=== PATIENT | female | born 1930 | race Caucasian/White ===

== ENCOUNTER 2016-11-12 08:56 | Emergency (ER) | payer MEDICARE, OTHER ==
[2016-11-12 09:13] VITALS: BP 125/69
--- OUTSIDE RECORDS SUMMARY | 2016-11-12 09:36 | XMS REPORT | Continuity of Care Document ---
:1930 Author Organization [facility] ([facility]) Address [address] [place] [address] Phone [phone] Care Team Providers Name Role Phone Mazin Sharma Primary Care Provider [phone] Source Comments This disclosure is being made pursuant to the Care Everywhere program, applicable federal and state laws, and may not contain all informaitonavailable regarding this patient.[facility] ([facility]) Active Allergies and Adverse Reactions Allergen Noted Date Severity Reactions Comments Adhesive Tape Pruritus Penicillins Urticaria (Hives) Streptomycin Dizziness Sulfadoxine Urticaria (Hives) Current Medications Prescription Sig. Disp. Refills Start Date End Date Status CALCIUM CARBONATE Take 500 mg by mouth Active (CALCIUM 500 PO) daily. citalopram 20 mg Take 20 mg by mouth Active tablet daily. ALPRAZolam 0.25 mg Take 0.25 mg by Active tablet mouth daily as needed . multivitamin with Take 1 Tab by mouth Active minerals tablet daily. acetaminophen Take 325 mg by mouth Active (TYLENOL) 325 mg every 4 hours as tablet needed. losartan 50 mg Take 1 Tab by mouth 30 Tab 11 01/17/2014 Active tablet daily. Indications: CHRONIC HEART FAILURE FAMOTIDINE 20 mg as needed . 07/18/2014 Active tablet ATROVENT HFA 17 05/30/2014 Active mcg/Actuation inhaler zoster vaccine-live inject 0.65 mL 0.65 mL 0 08/07/2014 Active (ZOSTAVAX) 19,400 subcutaneously once. unit injection Indications: PREVENTION OF HERPES ZOSTER omega-3 fatty acids Take 2 g by mouth 2 Active 1 gram capsule times daily hydroxyurea 500 mg Take 1 capsule (500 30 capsule 11 10/01/2015 Active capsule mg total) by mouth daily. warfarin 1 mg tablet Take 4 mg by mouth Active daily. metoPROLol tartrate Take 1 tablet (25 mg 60 tablet 04/08/2016 Active 25 mg tablet total) by mouth 2 times daily. amiodarone 100 mg Take 100 mg by mouth Active tablet daily. furosemide 40 mg Take 0.5 tablets (20 30 tablet 05/13/2016 Active tablet mg total) by mouth daily. spironolactone 25 mg Take 0.5 tablets 30 tablet 05/13/2016 Active tablet (12.5 mg total) by mouth daily. levothyroxine 100 Take 100 mcg by Active mcg tablet mouth every morning before breakfast. potassium chloride Take 1 tablet (20 60 tablet 06/24/2016 Active 20 mEq tablet mEq total) by mouth 2 times daily. 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 2006 without mention of cerebral infarction Primary open-angle glaucoma(365.11) 03/03/2005 Unspecified cataract 03/03/2005 Chronic airway obstruction, not elsewhere classified 03/03/2005 Anxiety state, unspecified 08/26/2002 Resolved Problems Problem Noted Date Resolved Date DIARRHEA NOS 08/26/2002 07/12/2013 Social History Tobacco Use Types Packs/Day Years Used Date Current Every Day Smoker Cigarettes 0.5 50 Smokeless Tobacco: Never Used Tobacco Cessation:Ready to Quit: No Comments: Alcohol Use Drinks/Week oz/Week Comments No Last Filed Vital Signs Vital Sign Reading Time Taken Blood Pressure 130/80 06/24/2016 12:47 PM CDT Pulse 60 06/24/2016 12:47 PM CDT Temperature 36.2 C (97.2 F) 03/18/2016 9:36 AM CDT Respiratory Rate 20 01/31/2016 9:08 AM CDT Height 1.575 m (5' 2.01") 06/24/2016 12:47 PM CDT Weight 47.537 kg (104 lb 12.8 oz) 06/24/2016 12:47 PM CDT Body Mass Index 19.16 06/24/2016 12:47 PM CDT Oxygen Saturation 94% 04/02/2016 3:55 PM CDT Plan of Care Date Type Specialty Providers Description 12/23/2016 Appointment Heart and Vascular Jet Guillen Subj: Ama Merritt MD Scheduled [address] [place] [address] [phone] (Fax) 04/30/2017 Appointment Heart and Vascular Fredy Thompson MD Chief Comp: Patient [address] [place] [address] Visit [phone] (Fax) Health Maintenance Due Date Last Done Comments Hepatitis B Vaccine (1 of 3 - Primary 1930 Series) Tdap Vaccine 1942 Td Vaccine 1949 Colonoscopy 05/11/1981 Zoster Vaccine 1991 Osteoporosis Screening (DXA Bone 1996 Density) Pneumococcal Vaccine (1 of 2 - PCV13) 1996 Influenza Vaccine: Seasonal (#1) 04/07/2016 05/30/2014 (Previously completed) Lipid Disorder Screening 07/24/2020 07/24/2015, 09/20/2012 Results from Last 3 Months Not on file
--- NOTE | 2016-11-12 09:43 | ERNOTE ---
Integumentary HPI - Narrative Date of Service: 11/12/16 - General Presenting Symptoms: rash Time Seen by Provider: 11/12/16 09:21 Source: patient - Immun/Allergies/Home Medications Immunizations: IMMUNIZATION HX Immunizations Up to Date Yes History of Influenza Vaccine Yes Hx Pneumococcal Vaccination Yes Allergies/Adverse Reactions: Allergies Allergy/AdvReac Type Severity Reaction Status Date / Time Penicillins Allergy Unknown Verified 11/12/16 09:14 Sulfa (Sulfonamide Allergy Unknown Verified 11/12/16 09:14 Antibiotics) [Sulfa(Sulfonamide Antibiotics)] adhesive Allergy Verified 11/12/16 09:14 streptomycin Allergy Verified 11/12/16 09:14 Home Medications: HOME MEDICATIONS Budesonide [Pulmicort Respules] 0.5 mg IH BIDRT #0 vial.neb 07/10/12 [Last Taken Unknown] Citalopram Hydrobromide [Celexa] 20 mg PO DAILY #0 tablet 07/10/12 [Last Taken Unknown] Hydroxyurea [Hydrea] 500 mg PO DAILY #0 capsule 07/10/12 [Last Taken Unknown] Ipratropium [place] [Atrovent] 0.5 mg IH BIDRT PRN #0 vial.neb 07/10/12 [Last Taken Unknown] Levalbuterol HCl [Xopenex] 1.25 mg IH Q6H PRN #0 ampul 07/10/12 [Last Taken Unknown] Amiodarone HCl [Cordarone] 100 mg PO DAILY 06/18/14 [Last Taken Unknown] LORazepam [Ativan] 0.5 mg PO TID PRN #30 tab 06/18/14 [Last Taken Unknown] Losartan Potassium [Cozaar] 50 mg PO DAILY 06/18/14 [Last Taken Unknown] Meclizine HCl [Antivert] 25 mg PO QID PRN #40 tab 06/18/14 [Last Taken Unknown] Levothyroxine Sodium [Synthroid] 150 mcg PO DAILY@0700 02/21/15 [Last Taken Unknown] Warfarin Sodium [Coumadin] 4 mg PO DAILY 02/21/15 [Last Taken Unknown] Doxycycline Monohydrate [Monodox] 100 mg PO BID 11/12/16 [Last Taken Unknown] Famotidine [Pepcid] 20 mg PO BID #10 tab 11/12/16 [Last Taken Unknown] Furosemide [Lasix] 60 mg PO DAILY 11/12/16 [Last Taken Unknown] Prednisone [Deltasone] 20 mg PO BID #10 tablet 11/12/16 [Last Taken Unknown] - History of Present Illness Narrative: Impression presents with a rash on her back on her blood tox in the back of both eyes that started over the past 24 hours. Describes the rash as being itchy in nature. Patient is unclear as to the cause she thinks it could be attributed to several things one could be the doxycycline that she was just started on an second could possibly be [place] home has been doing her laundry with a detergent that she is unfamiliar with. Location: Reports: torso Quality: Reports: itching Severity: moderate Exposure: Reports: soaps/detergent, other - or possibly Doxycycline Associated Symptoms: Reports: hives Prior Treatment: Reports: treated by physician, currently on antibiotics Review of Systems - Review of Systems Constitutional: Present: See HPI EYE: Present: no symptoms reported ENT: Present: no symptoms reported Respiratory: Present: no symptoms reported Cardiology: Present: no symptoms reported Gastrointestinal/Abdominal: Present: no symptoms reported Genitourinary: Present: no symptoms reported Musculoskeletal: Present: no symptoms reported Skin: Present: rash Neurological: Present: no symptoms reported Endocrine: Present: no symptoms reported Hematologic/Lymphatic: Present: no symptoms reported Psych: Present: no symptoms reported - Patient's Past Medical History Patient History - Cardiac/Respiratory: CHF, COPD, Hypertension, Hyperlipidemia Patient History - Surgical Procedures: Pacemaker - Social History Living Situations: home Smoking Status: Current every day smoker Alcohol Use: none Drug Use: none - Immunizations Immunizations Up to Date: Yes Hx Pneumococcal Vaccination: Yes History of Influenza Vaccine: Yes Physical Exam - Physical Exam General Appearance: Present: wd/wn, alert, mild distress Eye Exam: Normal inspection: bilateral, PERRL: bilateral Ears, Nose, Throat: Present: normal ENT inspection, H, normal pharynx Neck: Present: normal inspection, nontender Respiratory: Present: no respiratory distress, normal breath sounds, no accessory muscle use, chest nontender, lungs clear Cardiovascular/Chest: Present: regular rate, rhythm, no murmur, normal peripheral pulses Gastrointestinal/Abdominal: Present: normal bowel sounds, nontender, nondistended, soft, no organomegaly Rectal Exam: Present: deferred Back Exam: Present: normal inspection, normal range of motion Extremity Exam: Present: normal inspection, non-tender, no edema, normal range of motion Neurological Exam: Present: alert, oriented, normal mood/affect Skin Exam: Present: warm/dry, other - hives across the back, buttocks and the back of her legs Lymphatic Exam: Present: no adenopathy ED Progress - Vital Signs Patient's Vital Signs:: I have reviewed the patient's vital signs. Vital Signs: Vital Signs 11/12/16 09:09 Temperature 36.4 C L Pulse Rate 75 Respiratory 12 Rate Blood Pressure 125/69 O2 Sat by Pulse 96 Oximetry - Progress/Reassessment Chief Complaint: Rash - Transfer of Care Expected Disposition: Discharge Plan - Plan Plan: While the rash could possibly be from the doxycycline and the fact that it is positioned in a place where she would sit down and perhaps have some degree of body moisture in the form of sweat could be lesion chemicals off the closed with the unknown laundry detergent. Patient will be discharged from [place] home shortly and will be going almost going home straight doing her own laundry she's even going to start doing her own laundry now so we're going to put her on 5 day course of oral steroids and Pepcid as well as Atarax to help with the itching. The patient is being treated for sinus infection, however we are still going to have her hold the direct doxycycline for now. She can wash all of her clothes in her familiar laundry detergent and then restart of the doxycycline at that point and see if the rash reconstitutes itself. We'll keep her family physician apprised of the course of events of the above-mentioned plan that we just talked about. Departure Clinical Impression: Urticaria - Departure Disposition: Home self-care Condition: Good Instructions: Hives, [id number] Referrals: Mazin Sharma MD [Primary Care Provider] -
== END 2016-11-12 09:47 | disposition home or self-care (01) ==
LOC: ER 08:56
DX: L50.9 Urticaria, unspecified (principal); F17.210 Nicotine dependence, cigarettes, uncomplicated; Z95.0 Presence of cardiac pacemaker; I50.9 Heart failure, unspecified; J44.9 Chronic obstructive pulmonary disease, unspecified

== ENCOUNTER 2017-01-02 13:38 | Emergency (ER) | payer MEDICARE, OTHER ==
--- OUTSIDE RECORDS SUMMARY | 2017-01-02 14:55 | XMS REPORT | Continuity of Care Document ---
:1930 Author Organization [facility] ([facility]) Address [address] [place] [address] Phone [phone] Care Team Providers Name Role Phone Mazin Sharma Primary Care Provider [phone] Source Comments This disclosure is being made pursuant to the Care Everywhere program, applicable federal and state laws, and may not contain all informaitonavailable regarding this patient.[facility] ([facility]) Active Allergies and Adverse Reactions Allergen Noted Date Severity Reactions Comments Adhesive Tape Pruritus Doxycycline 11/24/2016 Urticaria (Hives) Penicillins Urticaria (Hives) Streptomycin Dizziness Sulfadoxine Urticaria (Hives) Current Medications Prescription Sig. Disp. Refills Start End Date Status Date CALCIUM CARBONATE Take 500 mg by Active (CALCIUM 500 PO) mouth daily. multivitamin with Take 1 Tab by Active minerals tablet mouth daily. acetaminophen Take 325 mg by Active (TYLENOL) 325 mg mouth every 4 tablet hours as needed. losartan 50 mg Take 1 Tab by 30 Tab 11 Active tablet mouth daily. 4 Indications: CHRONIC HEART FAILURE FAMOTIDINE 20 mg as needed . Active tablet 4 ATROVENT HFA 17 Active mcg/Actuation 4 inhaler zoster inject 0.65 mL 0.65 mL 0 Active vaccine-live subcutaneously 4 (ZOSTAVAX) 19,400 once. Indications: unit injection PREVENTION OF HERPES ZOSTER omega-3 fatty Take 2 g by mouth Active acids 1 gram 2 times daily capsule warfarin 1 mg Take 4 mg by mouth Active tablet daily. metoPROLol Take 1 tablet (25 60 tablet 11 Active tartrate 25 mg mg total) by mouth 6 tablet 2 times daily. amiodarone 100 mg Take 100 mg by Active tablet mouth daily. potassium chloride Take 1 tablet (20 60 tablet 11 Active 20 mEq tablet mEq total) by 6 mouth 2 times daily. hydroxyurea 500 mg Take 1 capsule 30 capsule 11 Active capsule (500 mg total) by 7 mouth daily. furosemide PO Take 60 mg by Active mouth. Takes one 40 mg and 20 mg in the AM. levothyroxine 150 Take 150 mcg by Active mcg tablet mouth every morning before breakfast. spironolactone 25 Take 25 mg by Active mg tablet mouth daily. ALPRAZolam 0.25 mg Take 1 tablet 30 tablet 0 Active tablet (0.25 mg total) by 7 mouth 2 times daily as needed for Anxiety. citalopram 20 mg Take 2 tablets (40 60 tablet 1 Active tablet mg total) by mouth 7 daily. furosemide 80 mg Take 1 tablet (80 30 tablet 11 Active tablet mg total) by mouth 7 every morning. citalopram 20 mg Take 20 mg by 12/24/19 Discontinued tablet mouth daily. 17 ALPRAZolam 0.25 mg Take 0.25 mg by 12/24/19 Discontinued tablet mouth 3 times 17 daily as needed. furosemide 40 mg Take 0.5 tablets 30 tablet 12/24/19 Discontinued tablet (20 mg total) by 6 17 mouth daily. spironolactone 25 Take 0.5 tablets 30 tablet 11 12/24/19 Discontinued mg tablet (12.5 mg total) by 6 17 mouth daily. levothyroxine 100 Take 100 mcg by 12/24/19 Discontinued mcg tablet mouth every 17 morning before breakfast. furosemide 20 mg Take 20 mg by 12/24/19 Discontinued tablet mouth daily. 60 mg 17 in the AM and additional 20 mg in the afternoon. Active Problems Problem Noted Date Femoral bruit 11/12/2015 Biventricular cardiac pacemaker in situ - [employer] 07/14/2014 Paroxysmal atrial fibrillation 07/12/2013 Essential thrombocythemia [...] Date Resolved Date DIARRHEA NOS 08/26/2002 07/12/2013 Most Recent Encounters Date Type Specialty Providers Description 12/23/2016 Office Visit [facility] - Default, Other Dx: Paroxysmal Specialty Billg - Defo atrial fibrillation (Primary Dx) 12/23/2016 Office Visit Heart and Vascular Mindy, Dx: Paroxysmal Jet Merritt MD atrial fibrillation (Primary Dx) 11/24/2016 Hospital Encounter Hematology and Durga Hector Dx: ET ( essential Oncology MD Justin thrombocythemia) (Primary Dx) Social History Tobacco Use Types Packs/Day Years Used Date Current Every Day Smoker Cigarettes 0.5 50 Smokeless Tobacco: Never Used Tobacco Cessation:Ready to Quit: No Comments: Alcohol Use Drinks/Week oz/Week Comments No Last Filed Vital Signs Vital Sign Reading Time Taken Blood Pressure 128/75 12/23/2016 10:08 AM CDT Pulse 74 11/24/2016 1:00 PM CDT Temperature 36.8 C (98.2 F) 11/24/2016 1:00 PM CDT Respiratory Rate 20 01/31/2016 9:08 AM CDT Height 1.575 m (5' 2") 12/23/2016 10:08 AM CDT Weight 47.356 kg (104 lb 6.4 oz) 12/23/2016 10:08 AM CDT Body Mass Index 19.09 12/23/2016 10:08 AM CDT Oxygen Saturation 95% 12/23/2016 10:08 AM CDT Plan of Care Date Type Specialty Providers Description 01/20/2017 Appointment Heart and Vascular Jet Guillen Subj: Ama Merritt MD Scheduled [address] [place] [address] [phone] (Fax) 04/30/2017 Appointment Heart and Vascular Fredy Thompson MD Chief Comp: Patient [address] [place] [address] Visit [phone] (Fax) Health Maintenance Due Date Last Done Comments Hepatitis B Vaccine (1 of 3 - Primary 1930 Series) Tdap Vaccine 1942 Td Vaccine 1949 Colonoscopy 05/11/1981 Zoster Vaccine 1991 Osteoporosis Screening (DXA Bone 1996 Density) Pneumococcal Vaccine (1 of 2 - PCV13) 1996 Influenza Vaccine: Seasonal (Season 04/07/2017 05/30/2014 (Previously Ended) completed) Lipid Disorder Screening 07/24/2020 07/24/2015, 09/20/2012 Results from Last 3 Months [facility] BASIC METABOLIC PANEL (W/ CALCIUM TOTAL) (12/23/2016 9:30 AM) Component Value Range [facility] Sodium 140 137-145 mmol/L [facility] Potassium 4.3 3.4-5.1 mmol/L [facility] Chloride 100 98-107 mmol/L [facility] CO2 30 20-30 mmol/L [facility] Glucose 102 60-110 mg/dL [facility] BUN 13 7-17 mg/dL [facility] Creatinine 1.07 0.70-1.25 mg/dL [facility] Calcium 8.7 8.4-10.5 mg/dL [facility] Calculated GFR 49(L) >60 mL/min/1.73 m2 Specimen Blood
--- NOTE | 2017-01-02 15:05 | ERNOTE ---
Lower Extremity HPI - Narrative Date of Service: 01/02/17 - General Lower Extremities Pain: hip: bilateral, other: bilateral - lower back Time Seen by Provider: 01/02/17 14:42 Source: patient Exam Limitations: no limitations - Immun/Allergies/Home Medications Immunizations: IMMUNIZATION HX Immunizations Up to Date Yes History of Influenza Vaccine Yes Hx Pneumococcal Vaccination Yes Allergies/Adverse Reactions: Allergies Allergy/AdvReac Type Severity Reaction Status Date / Time Penicillins Allergy Unknown Verified 01/02/17 15:02 Sulfa (Sulfonamide Allergy Unknown Verified 01/02/17 15:02 Antibiotics) [Sulfa(Sulfonamide Antibiotics)] adhesive Allergy Verified 01/02/17 15:02 streptomycin Allergy Verified 01/02/17 15:02 Home Medications: HOME MEDICATIONS Budesonide [Pulmicort Respules] 0.5 mg IH BIDRT #0 vial.neb 07/10/12 [Last Taken Unknown] Hydroxyurea [Hydrea] 500 mg PO DAILY #0 capsule 07/10/12 [Last Taken Unknown] Ipratropium [place] [Atrovent] 0.5 mg IH BIDRT PRN #0 vial.neb 07/10/12 [Last Taken Unknown] Levalbuterol HCl [Xopenex] 1.25 mg IH Q6H PRN #0 ampul 07/10/12 [Last Taken Unknown] Amiodarone HCl [Cordarone] 100 mg PO DAILY 06/18/14 [Last Taken Unknown] Losartan Potassium [Cozaar] 50 mg PO DAILY 06/18/14 [Last Taken Unknown] Levothyroxine Sodium [Synthroid] 150 mcg PO DAILY@0700 02/21/15 [Last Taken Unknown] Warfarin Sodium [Coumadin] 4 mg PO DAILY 02/21/15 [Last Taken Unknown] Famotidine [Pepcid] 20 mg PO BID #10 tab 11/12/16 [Last Taken Unknown] Furosemide [Lasix] 80 mg PO DAILY 11/12/16 [Last Taken Unknown] ALPRAZolam [Xanax] 0.25 mg PO TID PRN 01/02/17 [Last Taken Unknown] Acetaminophen [Tylenol] 325 mg PO Q4H PRN 01/02/17 [Last Taken Unknown] Calcium Carbonate [Calcium] 500 mg PO DAILY 01/02/17 [Last Taken Unknown] Cephalexin Monohydrate [Keflex] 500 mg PO QID #40 cap 01/02/17 [Last Taken Unknown] Citalopram Hydrobromide [Celexa] 20 mg PO BID 01/02/17 [Last Taken Unknown] Lidocaine [Lidoderm 5%] 1 patch TP DAILY PRN #30 patch 01/02/17 [Last Taken Unknown] Metoprolol Succinate 25 mg PO BID 01/02/17 [Last Taken Unknown] Multivitamin [Multivitamins] 1 each PO DAILY 01/02/17 [Last Taken Unknown] [place]-3/Dha/Epa/Fish Oil [[place] 3 500 Softgel] 1 each PO DAILY 01/02/17 [Last Taken Unknown] Potassium Chloride [Klor-Con] 20 meq PO BID 01/02/17 [Last Taken Unknown] Spironolactone [Aldactone] 25 mg PO DAILY 01/02/17 [Last Taken Unknown] - History of Present Illness Narrative: Pt. comes in with c/o low back pain that radiates to B hips after two falls since last night. Pt. states that she has fallen in the middle of the night and has not been using her walker or cane like she should and states that she is off balance, hurrying to the bathroom, and falls onto her buttocks. Pt. denies hitting her head, NVD, vision changes, weakness, or numbness and tingling. Pt. states that movement and ambulation exacerbates the pain and nothing alleviates the pain. Review of Systems - Review of Systems Constitutional: Present: no symptoms reported. Absent: recent illness, fever, chills, weakness, fatigue, malaise EYE: Present: no symptoms reported ENT: Present: no symptoms reported Respiratory: Present: no symptoms reported. Absent: shortness of breath, cough , wheezing Cardiology: Present: no symptoms reported. Absent: chest pain, palpitations, edema Gastrointestinal/Abdominal: Present: no symptoms reported. Absent: nausea, vomiting, diarrhea Genitourinary: Present: no symptoms reported Musculoskeletal: Present: back pain - Low, muscle pain - B hip Skin: Present: no symptoms reported Neurological: Present: no symptoms reported. Absent: headache, dizziness/light- headedness, numbness, tingling All Other Systems: All systems neg except as marked - Patient's Past Medical History Patient History - Cardiac/Respiratory: CHF, COPD, Hypertension, Hyperlipidemia Patient History - Surgical Procedures: Pacemaker LMP (females 10-50): Menopausal - Social History Living Situations: home Smoking Status: Current every day smoker Alcohol Use: none Drug Use: none - Immunizations Immunizations Up to Date: Yes Hx Pneumococcal Vaccination: Yes History of Influenza Vaccine: Yes Physical Exam - Physical Exam General Appearance: Present: wd/wn, alert, no apparent distress Eye Exam: Normal inspection: bilateral, PERRL: bilateral, EOMI: bilateral Ears, Nose, Throat: Present: normal ENT inspection, normal pharynx Neck: Present: normal inspection, nontender. Absent: lymphadenopathy (R), lymphadenopathy (L) Respiratory: Present: no respiratory distress, normal breath sounds, no accessory muscle use, chest nontender, lungs clear Cardiovascular/Chest: Present: regular rate, rhythm, no murmur, normal peripheral pulses Gastrointestinal/Abdominal: Present: normal bowel sounds, nontender, nondistended, soft, no organomegaly Back Exam: Present: vertebral tenderness - L3-S1, decreased range of motion - flxion, extension, and rotation Extremity Exam: Present: normal inspection, non-tender, normal range of motion, no edema Neurological Exam: Present: alert, oriented, normal mood/affect, no motor/ sensory deficits Skin Exam: Present: normal color, warm/dry. Absent: pallor, skin rash ED Progress - Date and Time Seen: Date and Time: 01/02/17 16:06 Pt. refused IVF. Will treat will abx for UTI have pt. push oral fluids, and follow up with primary provider on Thursday. - Vital Signs Patient's Vital Signs:: I have reviewed the patient's vital signs. Vital Signs: Vital Signs 01/02/17 14:08 Temperature 37.0 C Pulse Rate 84 Respiratory 18 Rate Blood Pressure 98/53 O2 Sat by Pulse 94 Oximetry - X-Ray X-Ray #1 X-Ray: lumbosacral Interpretation: Interp. by me X-ray Comments: L1 compression fracture without retropulsion. L2-S1 degenerative changes - Progress/Reassessment Chief Complaint: Hip Pain/Injury Progress:: Unchanged Departure Clinical Impression: Compression fracture UTI (urinary tract infection) Qualifiers: Urinary tract infection type: acute cystitis Hematuria presence: without hematuria Qualified Code(s): N30.00 - Acute cystitis without hematuria - Departure Disposition: Home self-care Condition: Good Instructions: Spinal Compression Fracture, Urinary Tract Infection, Adult, Easy -to-Read Additional Instructions: Please follow up with Dr Sharma on Thursday Referrals: Mazin Sharma MD [Primary Care Provider] - Prescriptions: Cephalexin Monohydrate [Keflex] 500 mg PO QID #40 cap Lidocaine [Lidoderm 5%] 1 patch TP DAILY PRN #30 patch PRN Reason: Pain
[2017-01-02 15:24] LABS: Hematocrit 40.4 % (37.0-47.0); Hemoglobin 13.3 gm/dL (12.5-16.0); Mean Cell Volume 108.6 fl (78-100); Mean Corpuscular Hemoglobin 35.8 pg (27-31); Mean Corpuscular Hgb Conc 32.9 g/dl (32-36); Neutrophil # 9.1 K/mm3 (1.3-6.0); Neutrophil % 82.2 % (42-75.0); Platelet Count 392 K/mm3 (150-450); Red Blood Count 3.72 M/mm3 (4.2-5.4); Red Cell Distribution Width 15.9 % (11.5-14.0); White Blood Count 11.1 K/mm3 (4.0-10.5)
[2017-01-02 15:29] VITALS: BP 111/68
[2017-01-02 15:31] LABS: Urine Appearance Clear; Urine Bilirubin Negative (NEGATIVE); Urine Blood Negative /ul (NEGATIVE); Urine Color Yellow; Urine Ketone Negative (NEGATIVE); Urine Nitrite Negative (NEGATIVE); Urine Protein Negative (NEGATIVE); Urine Urobilinogen Normal (NORMAL); Urine pH 5.5 pH (5.0-7.0)
[2017-01-02 15:37] LABS: Albumin * 3.7 gm/dl (3.4-5.0); Anion Gap 12.6 mmol/L (6.8-13.8); BUN/Creatinine Ratio 14.9 (9.0-21.6); Ca. Corrected For Albumin 8.4 mg/dL (8.4-10.2); Calcium * 8.5 mg/dL (7.9-10.9); Carbon Dioxide 28.4 mmol/L (24-32.6); Total Protein 7.3 gm/dL (6.2-8.2)
[2017-01-02] MEDS ORDERED: POTASSIUM CHLORIDE 20 MEQ TABLET.SA ONE (15:52)
[2017-01-02 16:15] LABS: Prothrombin Time (Patient) 66.6 Seconds (9.4-11.4)
[2017-01-02 16:18] LABS: INR 6.4 INR (0.90-1.10)
[2017-01-02] MEDS ORDERED: PHYTONADIONE (VIT K1) 5 MG TABLET ONE (16:41)
[2017-01-02] MEDS: POTASSIUM CHLORIDE 20 MEQ TABLET.SA PO ONE (16:52)
[2017-01-02] MEDS: PHYTONADIONE (VIT K1) 5 MG TABLET PO ONE (16:52)
== END 2017-01-02 16:56 | disposition home or self-care (01) ==
LOC: ER 13:38
DX: N30.00 Acute cystitis without hematuria (principal); S32.018A Other fracture of first lumbar vertebra, initial encounter for closed fracture; W19.XXXA Unspecified fall, initial encounter; F17.200 Nicotine dependence, unspecified, uncomplicated; Z95.0 Presence of cardiac pacemaker

== ENCOUNTER 2017-01-07 07:07 | Emergency (ER) | payer MEDICARE, OTHER ==
[2017-01-07 07:20] VITALS: BP 169/80
--- NOTE | 2017-01-07 07:42 | ERNOTE ---
<Jan Devries - Last Filed: 01/07/17 07:53> Abdominal HPI - General Chief Complaint: Constipation Time Seen by Provider: 01/07/17 07:29 Source: patient Exam Limitations: no limitations - Immun/Allergies/Home Medications Immunizatons: IMMUNIZATION HX Immunizations Up to Date Yes History of Influenza Vaccine Yes Hx Pneumococcal Vaccination Yes Allergies/Adverse Reactions: Allergies Penicillins Allergy (Unknown, Verified 01/07/17 07:24) Sulfa (Sulfonamide Antibiotics) [Sulfa(Sulfonamide Antibiotics)] Allergy ( Unknown, Verified 01/07/17 07:24) adhesive Allergy (Verified 01/07/17 07:24) streptomycin Allergy (Verified 01/07/17 07:24) Home Medications: HOME MEDICATIONS Budesonide [Pulmicort Respules] 0.5 mg IH BIDRT #0 vial.neb 07/10/12 [Last Taken Unknown] Hydroxyurea [Hydrea] 500 mg PO DAILY #0 capsule 07/10/12 [Last Taken Unknown] Ipratropium [place] [Atrovent] 0.5 mg IH BIDRT PRN #0 vial.neb 07/10/12 [Last Taken Unknown] Levalbuterol HCl [Xopenex] 1.25 mg IH Q6H PRN #0 ampul 07/10/12 [Last Taken Unknown] Amiodarone HCl [Cordarone] 100 mg PO DAILY 06/18/14 [Last Taken Unknown] Losartan Potassium [Cozaar] 50 mg PO DAILY 06/18/14 [Last Taken Unknown] Levothyroxine Sodium [Synthroid] 150 mcg PO DAILY@0700 02/21/15 [Last Taken Unknown] Famotidine [Pepcid] 20 mg PO BID #10 tab 11/12/16 [Last Taken Unknown] Furosemide [Lasix] 80 mg PO DAILY 11/12/16 [Last Taken Unknown] ALPRAZolam [Xanax] 0.25 mg PO TID PRN 01/02/17 [Last Taken Unknown] Acetaminophen [Tylenol] 325 mg PO Q4H PRN 01/02/17 [Last Taken Unknown] Calcium Carbonate [Calcium] 500 mg PO DAILY 01/02/17 [Last Taken Unknown] Cephalexin Monohydrate [Keflex] 500 mg PO QID #40 cap 01/02/17 [Last Taken Unknown] Citalopram Hydrobromide [Celexa] 20 mg PO BID 01/02/17 [Last Taken Unknown] Lidocaine [Lidoderm 5%] 1 patch TP DAILY PRN #30 patch 01/02/17 [Last Taken Unknown] Metoprolol Succinate 25 mg PO BID 01/02/17 [Last Taken Unknown] Multivitamin [Multivitamins] 1 each PO DAILY 01/02/17 [Last Taken Unknown] [place]-3/Dha/Epa/Fish Oil [[place] 3 500 Softgel] 1 each PO DAILY 01/02/17 [Last Taken Unknown] Potassium Chloride [Klor-Con] 20 meq PO BID 01/02/17 [Last Taken Unknown] Spironolactone [Aldactone] 25 mg PO DAILY 01/02/17 [Last Taken Unknown] - History of Present Illness Narrative: Pt having diffuse abdominal pain for a few days and has not had a normal BM for one week Timing: getting worse Quality: moderate Prior Treatment: Present: recently seen - for UTI and compression fracture Review of Systems - Review of Systems Constitutional: Present: recent illness. Absent: fever EYE: Present: no symptoms reported ENT: Present: no symptoms reported Gastrointestinal/Abdominal: Present: See HPI, nausea Genitourinary: Present: frequency Musculoskeletal: Present: back pain Skin: Present: no symptoms reported Hematologic/Lymphatic: Present: easy bruising - Patient's Past Medical History Patient History - Medical: No pertinent hx Patient History - Cardiac/Respiratory: CHF, COPD, Hypertension, Hyperlipidemia Patient History - Cancer: No Hx of Cancer Patient History - Surgical Procedures: Hysterectomy, Pacemaker Patient History - Other: None LMP (females 10-50): Menopausal - Social History Living Situations: alone Abuse History: No History of abuse Psych History: No pertinent hx Smoking Status: Current every day smoker Have you smoked in the past 12 months: Yes Alcohol Use: none Drug Use: none - Immunizations Immunizations Up to Date: Yes Hx Pneumococcal Vaccination: Yes History of Influenza Vaccine: Yes Physical Exam - Physical Exam General Appearance: Present: wd/wn, no apparent distress Neck: Present: normal inspection, nontender Respiratory: Present: no respiratory distress, normal breath sounds, lungs clear Cardiovascular/Chest: Present: regular rate, rhythm, no murmur, normal peripheral pulses Gastrointestinal/Abdominal: Present: normal bowel sounds, soft, tenderness - bilateral upper quads Back Exam: Present: decreased range of motion - increased kyphosis Extremity Exam: Present: normal inspection, normal range of motion, no edema Neurological Exam: Present: alert, oriented, normal mood/affect Skin Exam: Present: normal color, warm/dry ED Progress - Vital Signs Vital Signs: Vital Signs 01/07/17 07:14 Temperature 36.7 C Pulse Rate 75 Respiratory 16 Rate Blood Pressure 169/80 O2 Sat by Pulse 97 Oximetry - Progress/Reassessment Chief Complaint: Constipation - Transfer of Care Physician Sign Out: Jan Devries Receiving Physician: Lexus Mckeon Pending Results: X-ray results Expected Disposition: Discharge Departure - Departure Clinical Impression: Constipation Qualifiers: Constipation type: slow transit constipation Qualified Code(s): K59.01 - Slow transit constipation Disposition: Home self-care Condition: Good Instructions: Constipation, Adult, [id number] Additional Instructions: take over the counter tylenol (325mg) two tablets every 4-6 hours as needed for pain, take miralax on a daily basis and try senokot and/or prunes to get going now Referrals: Mazin Sharma MD [Primary Care Provider] - <Lexus Mckeon - Last Filed: 01/07/17 08:34> Abdominal HPI - Immun/Allergies/Home Medications Immunizatons: IMMUNIZATION HX Immunizations Up to Date Yes History of Influenza Vaccine Yes Hx Pneumococcal Vaccination Yes ED Progress - Results and Orders Patient's Lab Results:: I have reviewed the patient's lab results. - Vital Signs Patient's Vital Signs:: I have reviewed the patient's vital signs. Vital Signs: Vital Signs 01/07/17 07:14 Temperature 36.7 C Pulse Rate 75 Respiratory 16 Rate Blood Pressure 169/80 O2 Sat by Pulse 97 Oximetry - X-Ray X-Ray #1 X-Ray: abdomen - no acute findgins, fair amount of stool Interpretation: Interp. by me - Progress/Reassessment Progress Note-Subjective: 01/07/17 08:32 discussed results with patient and family and plan to treat constipation abdomen soft, minimally tender in upper abdomen
[2017-01-07 07:49] LABS: Hematocrit 41.1 % (37.0-47.0); Hemoglobin 13.8 gm/dL (12.5-16.0); Mean Cell Volume 107.6 fl (78-100); Mean Corpuscular Hemoglobin 36.1 pg (27-31); Mean Corpuscular Hgb Conc 33.6 g/dl (32-36); Mean Platelet Volume 9.9 fl (6.0-9.5); Neutrophil # 7.9 K/mm3 (1.3-6.0); Neutrophil % 80.8 % (42-75.0); Platelet Count 389 K/mm3 (150-450); Red Blood Count 3.82 M/mm3 (4.2-5.4); Red Cell Distribution Width 15.8 % (11.5-14.0); White Blood Count 9.8 K/mm3 (4.0-10.5)
--- OUTSIDE RECORDS SUMMARY | 2017-01-07 08:01 | XMS REPORT | Continuity of Care Document ---
:1930 Author Organization [facility] ([facility]) Address [address] [place] [address] Phone [phone] Care Team Providers Name Role Phone Mazin Sharma Primary Care Provider [phone] Source Comments This disclosure is being made pursuant to the Care Everywhere program, applicable federal and state laws, and may not contain all informaitonavailable regarding this patient.[facility] ([facility]) Active Allergies and Adverse Reactions Allergen Noted [...] 11/12/2015 Biventricular cardiac pacemaker in situ - [employer] 07/14/2014 Paroxysmal atrial fibrillation 07/12/2013 Essential thrombocythemia [...] Type Specialty Providers Description 12/23/2016 Office Visit [place] - Default, Other Dx: Paroxysmal Specialty Billg [...] Ama Merritt MD Scheduled [address] [place] [address] [phone] (Fax) 04/30/2017 Appointment Heart and Vascular Fredy Thompson MD Chief Comp: Patient [address] [place] [address] Visit [phone] (Fax) Health Maintenance Due Date Last Done Comments Hepatitis B Vaccine (1 of 3 - Primary 1930 Series) Tdap Vaccine 1942 Td Vaccine 1949 Colonoscopy 05/11/1981 Zoster Vaccine 1991 Osteoporosis Screening (DXA Bone 1996 Density) Pneumococcal Vaccine (1 of 2 - PCV13) 1996 Influenza Vaccine: Seasonal (Season 04/07/2017 05/30/2014 (Previously Ended) completed) Lipid Disorder Screening 07/24/2020 07/24/2015, 09/20/2012 Results from Last 3 Months [facility] BASIC METABOLIC PANEL (W/ CALCIUM TOTAL) (12/23/2016 [...]
[2017-01-07 08:09] LABS: Urine Bilirubin Negative (NEGATIVE); Urine Blood Negative /ul (NEGATIVE); Urine Ketone Negative (NEGATIVE); Urine Nitrite Negative (NEGATIVE); Urine Protein Negative (NEGATIVE); Urine Specific Gravity 1.015 SP.GR. (1.005-1.010); Urine pH 6.5 pH (5.0-7.0)
[2017-01-07 08:14] LABS: Urine Appearance Clear; Urine Bacteria None Seen; Urine Color Yellow; Urine RBC TRACE /hpf (0-5); Urine WBC TRACE /hpf (0-5)
[2017-01-07] MEDS ORDERED: ACETAMINOPHEN 325 MG TABLET PO ONE (08:28)
[2017-01-07] MEDS ORDERED: ACETAMINOPHEN 325 MG TABLET ONE (08:29)
[2017-01-07 08:45] LABS: Albumin * 4.1 gm/dl (3.4-5.0); BUN/Creatinine Ratio 13.5 (9.0-21.6); Bilirubin, Total 1.6 mg/dL (0.0-1.1); Ca. Corrected For Albumin 8.6 mg/dL (8.4-10.2); Carbon Dioxide 26.8 mmol/L (24-32.6); Potassium 3.8 mmol/L (3.4-4.6); Total Protein 7.2 gm/dL (6.2-8.2)
== END 2017-01-07 08:35 | disposition home or self-care (01) ==
LOC: ER 07:07
DX: K59.01 Slow transit constipation (principal); Z72.0 Tobacco use; I50.9 Heart failure, unspecified; J44.9 Chronic obstructive pulmonary disease, unspecified; I10 Essential (primary) hypertension; E78.5 Hyperlipidemia, unspecified

== ENCOUNTER 2017-01-08 04:04 | Emergency (ER) | payer MEDICARE, OTHER ==
--- NOTE | 2017-01-08 04:23 | ERNOTE ---
Abdominal HPI - General Chief Complaint: Constipation Time Seen by Provider: 01/08/17 04:08 Source: patient - Immun/Allergies/Home Medications Immunizatons: IMMUNIZATION HX Immunizations Up to Date Yes History of Influenza Vaccine Yes Hx Pneumococcal Vaccination Yes Allergies/Adverse Reactions: Allergies Penicillins Allergy (Unknown, Verified 01/08/17 04:11) Sulfa (Sulfonamide Antibiotics) [Sulfa(Sulfonamide Antibiotics)] Allergy ( Unknown, Verified 01/08/17 04:11) adhesive Allergy (Verified 01/08/17 04:11) streptomycin Allergy (Verified 01/08/17 04:11) Home Medications: HOME MEDICATIONS Hydroxyurea [Hydrea] 500 mg PO DAILY #0 capsule 07/10/12 [Last Taken Unknown] Ipratropium [place] [Atrovent] 0.5 mg IH BIDRT PRN #0 vial.neb 07/10/12 [Last Taken Unknown] Amiodarone HCl [Cordarone] 100 mg PO DAILY 06/18/14 [Last Taken Unknown] Losartan Potassium [Cozaar] 50 mg PO DAILY 06/18/14 [Last Taken Unknown] Levothyroxine Sodium [Synthroid] 150 mcg PO DAILY@0700 02/21/15 [Last Taken Unknown] Famotidine [Pepcid] 20 mg PO BID #10 tab 11/12/16 [Last Taken Unknown] Furosemide [Lasix] 80 mg PO DAILY 11/12/16 [Last Taken Unknown] ALPRAZolam [Xanax] 0.25 mg PO TID PRN 01/02/17 [Last Taken Unknown] Acetaminophen [Tylenol] 325 mg PO Q4H PRN 01/02/17 [Last Taken Unknown] Calcium Carbonate [Calcium] 500 mg PO DAILY 01/02/17 [Last Taken Unknown] Cephalexin Monohydrate [Keflex] 500 mg PO QID #40 cap 01/02/17 [Last Taken Unknown] Citalopram Hydrobromide [Celexa] 20 mg PO BID 01/02/17 [Last Taken Unknown] Lidocaine [Lidoderm 5%] 1 patch TP DAILY PRN #30 patch 01/02/17 [Last Taken Unknown] Multivitamin [Multivitamins] 1 each PO DAILY 01/02/17 [Last Taken Unknown] [place]-3/Dha/Epa/Fish Oil [[place] 3 500 Softgel] 1 each PO DAILY 01/02/17 [Last Taken Unknown] Potassium Chloride [Klor-Con] 20 meq PO BID 01/02/17 [Last Taken Unknown] Spironolactone [Aldactone] 25 mg PO DAILY 01/02/17 [Last Taken Unknown] Metoprolol Tartrate [Lopressor] 25 mg PO BID 01/08/17 [Last Taken Unknown] - History of Present Illness Narrative: Here for abdominal pain for 24 hours. Recently diagnosed with constipation and on multiple meds to help but no BM since yesterday. Lots of flatus. no nausea or vomiting Review of Systems - Review of Systems Constitutional: Present: no symptoms reported EYE: Present: no symptoms reported ENT: Present: no symptoms reported Respiratory: Present: no symptoms reported Cardiology: Present: no symptoms reported Gastrointestinal/Abdominal: Present: See HPI Genitourinary: Present: no symptoms reported Musculoskeletal: Present: no symptoms reported Skin: Present: no symptoms reported - Patient's Past Medical History Patient History - Medical: No pertinent hx Patient History - Cardiac/Respiratory: CHF, COPD, Hypertension, Hyperlipidemia Patient History - Cancer: No Hx of Cancer Patient History - Surgical Procedures: Hysterectomy, Pacemaker Patient History - Other: None - Social History Living Situations: home Abuse History: No History of abuse Psych History: No pertinent hx Smoking Status: Current every day smoker Alcohol Use: none Drug Use: none - Immunizations Immunizations Up to Date: Yes Hx Pneumococcal Vaccination: Yes History of Influenza Vaccine: Yes Physical Exam - Physical Exam General Appearance: Present: wd/wn, alert, no apparent distress Neck: Present: normal inspection, nontender, supple Respiratory: Present: no respiratory distress, normal breath sounds, no accessory muscle use, chest nontender, lungs clear Cardiovascular/Chest: Present: regular rate, rhythm, no murmur, normal peripheral pulses Gastrointestinal/Abdominal: Present: soft - abd is soft and there is increased bowel sounds. There is no rebound and abd is slightly distended but soft and nontender. Pt states she has been passing lots of gas but no BM. Extremity Exam: Present: normal inspection Neurological Exam: Present: alert, oriented, normal mood/affect, no motor/ sensory deficits ED Progress - Results and Orders Patient's Lab Results:: I have reviewed the patient's lab results. - Vital Signs Patient's Vital Signs:: I have reviewed the patient's vital signs. Vital Signs: Vital Signs 01/08/17 04:05 Temperature 37.0 C Pulse Rate 75 Respiratory 18 Rate Blood Pressure 128/74 O2 Sat by Pulse 95 Oximetry - Progress/Reassessment Chief Complaint: Constipation Plan - Plan Plan: pt had a fleet enema and milk and Molasses enema and had a healthy BM and felt much better and stated that the abd. pain had since resolved. She will be discharged home with Mag Citrate Departure - Departure Clinical Impression: Constipation Qualifiers: Constipation type: unspecified constipation type Qualified Code(s): K59.00 - Constipation, unspecified Disposition: Home self-care Condition: Good Instructions: Constipation, Pediatric, [id number] Additional Instructions: Please drink the Magnesium Citrate and expect to have some loose stools. Please drink plenty of water today Referrals: Mazin Sharma MD [Primary Care Provider] -
[2017-01-08 04:46] LABS: Hematocrit 42.8 % (37.0-47.0); Hemoglobin 14.4 gm/dL (12.5-16.0); Mean Cell Volume 107.8 fl (78-100); Mean Corpuscular Hemoglobin 36.3 pg (27-31); Mean Corpuscular Hgb Conc 33.6 g/dl (32-36); Neutrophil # 9.2 K/mm3 (1.3-6.0); Neutrophil % 80.6 % (42-75.0); Platelet Count 382 K/mm3 (150-450); Red Blood Count 3.97 M/mm3 (4.2-5.4); Red Cell Distribution Width 15.8 % (11.5-14.0); White Blood Count 11.5 K/mm3 (4.0-10.5)
[2017-01-08 04:55] LABS: Prothrombin Time (Patient) 12.8 Seconds (9.4-11.4)
[2017-01-08 04:56] LABS: INR 1.23 INR (0.90-1.10)
[2017-01-08] MEDS ORDERED: ACETAMINOPHEN 325 MG TABLET PO ONE (05:21)
[2017-01-08] MEDS ORDERED: ACETAMINOPHEN 325 MG TABLET ONE (05:21)
[2017-01-08 06:02] VITALS: BP 130/72
--- OUTSIDE RECORDS SUMMARY | 2017-01-08 06:22 | XMS REPORT | Continuity of Care Document ---
:1930 Author Organization [facility] ([facility]) Address [address] [place] [address] Phone [phone] Care Team Providers Name Role Phone Mazin Sharma Primary Care Provider [phone] Source Comments This disclosure is being made pursuant to the Care Everywhere program, applicable federal and state laws, and may not contain all informaitonavailable regarding this patient.[facility] ([facility]) Active Allergies and Adverse Reactions Allergen [...] 11/12/2015 Biventricular cardiac pacemaker in situ - [email or web address] 07/14/2014 Paroxysmal atrial fibrillation 07/12/2013 Essential thrombocythemia [...] Type Specialty Providers Description 12/23/2016 Office Visit [place] - Default, Other Dx: Paroxysmal Specialty Billg [...] Ama Merritt MD Scheduled [address] [place] [address] [phone] (Fax) 04/30/2017 Appointment Heart and Vascular Fredy Thompson MD Chief Comp: Patient [address] [place] [address] Visit [phone] (Fax) Health Maintenance Due Date Last Done Comments Hepatitis B Vaccine (1 of 3 - Primary 1930 Series) Tdap Vaccine 1942 Td Vaccine 1949 Colonoscopy 05/11/1981 Zoster Vaccine 1991 Osteoporosis Screening (DXA Bone 1996 Density) Pneumococcal Vaccine (1 of 2 - PCV13) 1996 Influenza Vaccine: Seasonal (Season 04/07/2017 05/30/2014 (Previously Ended) completed) Lipid Disorder Screening 07/24/2020 07/24/2015, 09/20/2012 Results from Last 3 Months [facility] BASIC METABOLIC PANEL (W/ CALCIUM TOTAL) (12/23/2016 [...]
[2017-01-08] MEDS ORDERED: MAGNESIUM CITRATE 300 ML BTL PO ONE (06:42)
[2017-01-08] MEDS ORDERED: MAGNESIUM CITRATE 300 ML BTL ONE (06:45)
== END 2017-01-08 07:06 | disposition home or self-care (01) ==
LOC: ER 04:04
DX: K59.00 Constipation, unspecified (principal); F17.210 Nicotine dependence, cigarettes, uncomplicated; I10 Essential (primary) hypertension; E78.5 Hyperlipidemia, unspecified; I50.9 Heart failure, unspecified

== ENCOUNTER 2018-06-26 08:41 | Observation (INO) | payer MEDICARE, OTHER ==
--- NOTE | 2018-06-26 09:13 | ERNOTE ---
Medical Problem HPI - General Chief Complaint: General Assessment Time Seen by Provider: 06/26/18 08:54 Source: patient, family Exam Limitations: no limitations - Immun/Allergies/Home Medications Immunizations: IMMUNIZATION HX Immunizations Up to Date Yes History of Influenza Vaccine Yes Hx Pneumococcal Vaccination Yes Allergies/Adverse Reactions: Allergies Penicillins Allergy (Unknown, Verified 06/16/18 10:58) Sulfa (Sulfonamide Antibiotics) [Sulfa(Sulfonamide Antibiotics)] Allergy (Unknown, Verified 06/16/18 10:58) adhesive Allergy (Verified 06/16/18 10:58) streptomycin Allergy (Verified 06/16/18 10:58) Home Medications: HOME MEDICATIONS Amiodarone HCl [Cordarone] 200 mg PO DAILY 06/18/14 [Last Taken Unknown] Docusate Sodium [Colace] 100 mg PO BID PRN 01/18/18 [Last Taken Unknown] Simethicone [Gas-X] 125 mg PO PRN 01/18/18 [Last Taken Unknown] Wheat Dextrin [Benefiber] 152 gm PO DAILY 01/18/18 [Last Taken Unknown] Donepezil HCl [Aricept] 5 mg PO DAILY 02/03/18 [Last Taken Unknown] Ipratropium [place] [Atrovent Hfa] 1 puff IH BID 02/03/18 [Last Taken Unknown] mirtazapine 15 mg tablet 30 mg PO HS #60 tab 04/28/18 [Last Taken Unknown] furosemide 20 mg tablet 20 mg PO DAILY 05/21/18 [Last Taken Unknown] levothyroxine 150 mcg tablet 150 mcg PO DAILY 05/21/18 [Last Taken Unknown] lorazepam 0.5 mg tablet 0.5 mg PO DAILY PRN tab 05/21/18 [Last Taken Unknown] metoprolol succinate ER 25 mg tablet,extended release 24 hr 25 mg PO DAILY 05/21/18 [Last Taken Unknown] potassium chloride ER 10 mEq tablet,extended release 10 meq PO DAILY 05/21/18 [Last Taken Unknown] aspirin 325 mg tablet 325 mg PO DAILY #90 tab 05/31/18 [Last Taken Unknown] calcium carbonate-vitamin D3 600 mg (1,500 mg)-800 unit tablet 1 tab PO DAILY #30 tab 05/31/18 [Last Taken Unknown] fexofenadine 180 mg tablet 180 mg PO DAILY #30 tab 05/31/18 [Last Taken Unknown] hydroxyurea 500 mg capsule 500 mg PO DAILY #30 cap 05/31/18 [Last Taken Unknown] omega-3 fatty acids-fish oil 300 mg-1,000 mg capsule 1 cap PO DAILY #30 cap 05/09 12/23 [Last Taken Unknown] vit C 150 mg-vit E 30 unit-lutein 5 xk-jeiicfmt-sujaw 3 150 mg capsule 1 cap PO DAILY #30 cap 05/31/18 [Last Taken Unknown] losartan 100 mg tablet 100 mg PO DAILY #90 tab 06/08/18 [Last Taken Unknown] Polyethylene Glycol 3350 [Miralax] 17 gm PO DAILY 06/26/18 [Last Taken Unknown] - History of Present History Narrative: Patient woke up this morning and noticed that she was unable to keep her balance. She stated she was having some difficulty coordinating her legs, although she denies any dizziness or nausea. Timing: constant Severity: moderate Review of Systems - Review of Systems Constitutional: Present: See HPI EYE: Present: no symptoms reported ENT: Present: no symptoms reported Respiratory: Present: no symptoms reported Cardiology: Present: no symptoms reported Gastrointestinal/Abdominal: Present: no symptoms reported Genitourinary: Present: no symptoms reported Musculoskeletal: Present: no symptoms reported Skin: Present: no symptoms reported Neurological: Present: See HPI Endocrine: Present: no symptoms reported Hematologic/Lymphatic: Present: no symptoms reported Psych: Present: no symptoms reported Medical History (Last Reviewed 06/26/18 @ 08:47 by Salazar Jackson RN) Osteoarthritis (Chronic) Onset Date: Unknown Left bundle branch block (Chronic) Onset Date: Unknown Hypothyroidism (Chronic) Onset Date: Unknown Hypertension (Chronic) Onset Date: Unknown Hyperlipidemia (Chronic) Onset Date: Unknown Depression (Chronic) Onset Date: Unknown CHF (congestive heart failure) (Chronic) Onset Date: Unknown COPD (chronic obstructive pulmonary disease) (Chronic) Onset Date: Unknown Cardiomyopathy (Chronic) Onset Date: Unknown mild non-ischemic cardiomyopathy Atrial fibrillation (Chronic) Onset Date: ~2009 Anxiety (Chronic) Onset Date: Unknown Fracture of lumbar spine Onset Date: ~2016 lower back fracture from fall Thrombocytosis Onset Date: ~04/1997 Diagnosed with essential thrombocythemia by Dr. Robles and on hydroxyurea Surgical History: Surgical History (Last Reviewed 06/26/18 @ 08:47 by Salazar Jackson RN) H/O colonoscopy Onset Date: ~2007 History of appendectomy Onset Date: Unknown History of lumpectomy Onset Date: ~2005 right breast History of thyroidectomy Onset Date: ~2004 Pacemaker Onset Date: ~07/13/14 [facility] S/P MECHE-BSO Onset Date: ~1965 Patient thinks tubes and ovaries removed Family History: Family History (Last Reviewed 06/26/18 @ 08:47 by Salazar Jackson RN) Father , age unknown Alcohol drinking problem Liver and esophagus problems due to drinking Mother , unknown age AAA (abdominal aortic aneurysm) Grandmother , unknown age CVA (cerebral vascular accident) several Social History: Preferred Language Indonesian Smoking Status Current every day smoker Abuse History No History of abuse Psych History No pertinent hx Alcohol Use none Drug Use none (Last Updated 05/21/18 @ 09:08 by Paulina eFrnandes RN) No Social History Section defined Physical Exam - Physical Exam General Appearance: Present: wd/wn, alert, no apparent distress Head Exam: Present: normal inspection, no evidence of injury Eye Exam: Normal inspection: bilateral, PERRL: bilateral Ears, Nose, Throat: Present: normal ENT inspection, H, normal pharynx Neck: Present: normal inspection, nontender Respiratory: Present: no respiratory distress, no accessory muscle use, chest nontender, lungs clear, decreased breath sounds Cardiovascular/Chest: Present: regular rate, rhythm, no murmur, normal peripheral pulses Gastrointestinal/Abdominal: Present: normal bowel sounds, nontender, nondistended, soft, no organomegaly Rectal Exam: Present: deferred Back Exam: Present: normal inspection, normal range of motion Extremity Exam: Present: normal inspection, non-tender, no edema, normal range of motion Neurological Exam: Present: alert, oriented, normal mood/affect, other - HINTS exam negative Skin Exam: Present: normal color, warm/dry Lymphatic Exam: Present: no adenopathy ED Progress - Results and Orders Patient's Lab Results:: I have reviewed the patient's lab results. - Vital Signs Patient's Vital Signs:: I have reviewed the patient's vital signs. Vital Signs: Vital Signs 06/26/18 08:41 Temperature 36.3 C Pulse Rate 73 Respiratory Rate 16 Blood Pressure 168/76 H O2 Sat by Pulse Oximetry 95 - EKG EKG read: Reviewed by me - X-Ray X-Ray #1 X-Ray: chest Interpretation: Reviewed by me - CT/Ultrasound CT/Ultrasound Narrative: CT the head and neck reviewed by me - Progress/Reassessment Chief Complaint: General Assessment Plan - Plan Plan: It is entirely possible that the patient did have some posterior CVA during this night last night, however the CTA of the head and neck ruled out any acute thrombotic event. Patient will be admitted for carotid Doppler ultrasounds and echocardiogram, however as we do not have an acute time of onset for the possible stroke TPA, while it was considered, is not appropriate. Departure Clinical Impression: CVA (cerebral vascular accident) Qualifiers: CVA mechanism: unspecified Qualified Code(s): I63.9 - Cerebral infarction, unspecified - Departure Disposition: Still a patient Condition: Fair Referrals: Mazin Sharma MD [Primary Care Provider] -
[2018-06-26 09:14] LABS: Hematocrit 41.7 % (37.0-47.0); Hemoglobin 14.2 gm/dL (12.5-16.0); Mean Cell Volume 112.4 fl (78-100); Mean Corpuscular Hemoglobin 38.3 pg (27-31); Mean Corpuscular Hgb Conc 34.1 g/dl (32-36); Mean Platelet Volume 9.6 fl (8-12.5); Neutrophil # 5.9 K/mm3 (1.3-6.0); Neutrophil % 77.5 % (42-75.0); Platelet Count 375 K/mm3 (150-450); Red Blood Count 3.71 M/mm3 (4.2-5.4); Red Cell Distribution Width 14.6 % (11.5-14.0); White Blood Count 7.5 K/mm3 (4.0-10.5)
[2018-06-26 09:26] LABS: Prothrombin Time (Patient) 10.9 Seconds (9.0-11.0)
[2018-06-26 09:27] LABS: INR 1.09 INR (0.90-1.10); Partial Thrombolplastin Time 28.2 Seconds (24-32)
[2018-06-26 09:30] LABS: Albumin * 3.9 gm/dl (3.4-5.0); Anion Gap 8.8 mmol/L (6.8-13.8); Ca. Corrected For Albumin 8.5 mg/dL (8.4-10.2); Calcium * 8.7 mg/dL (7.9-10.9); Carbon Dioxide 27.7 mmol/L (24-32.6); Potassium 3.5 mmol/L (3.4-4.6); Total Protein 7.2 gm/dL (6.2-8.2)
[2018-06-26] MEDS ORDERED: IPRATROPIUM BROMIDE 0.5 MG/2.5 ML VIAL.NEB IH PRN (17:37)
[2018-06-26] MEDS ORDERED: LORazepam 0.5 MG TABLET PO PRN (17:37)
[2018-06-26] MEDS ORDERED: ACETAMINOPHEN 325 MG TABLET PO PRN (17:37)
[2018-06-26] MEDS ORDERED: DOCUSATE SODIUM 100 MG CAPSULE PO PRN (17:37)
[2018-06-26] MEDS ORDERED: DONEPEZIL HCL 10 MG TABLET ONE (18:33)
[2018-06-26] MEDS ORDERED: FUROSEMIDE 40 MG TABLET ONE (18:33)
[2018-06-26] MEDS ORDERED: METOPROLOL SUCCINATE 50 MG TABLET.SA PO ONE (18:33)
[2018-06-26] MEDS: DONEPEZIL HCL 5 MG TABLET PO SCH (18:37)
[2018-06-26] MEDS: FUROSEMIDE 20 MG TABLET PO SCH (18:38)
[2018-06-26] MEDS: METOPROLOL SUCCINATE 25 MG TABLET.SA PO SCH (18:39)
[2018-06-26] MEDS: POTASSIUM CHLORIDE 10 MEQ TABLET.SA PO SCH (18:42)
[2018-06-26] MEDS: HYDROXYUREA 500 MG CAPSULE PO SCH (18:43)
[2018-06-26] MEDS: ASPIRIN 325 MG TABLET.DR PO SCH (18:43)
[2018-06-26] MEDS: LOSARTAN POTASSIUM 50 MG TABLET PO SCH (18:43)
[2018-06-26] MEDS: LORATADINE 10 MG TABLET PO SCH (20:28)
[2018-06-26] MEDS: MIRTAZAPINE 15 MG TABLET PO SCH (20:28)
[2018-06-27] MEDS: LEVOTHYROXINE SODIUM 150 MCG TABLET PO SCH (07:44)
[2018-06-27] MEDS: HYDROXYUREA 500 MG CAPSULE PO SCH (08:30)
[2018-06-27] MEDS: POTASSIUM CHLORIDE 10 MEQ TABLET.SA PO SCH (08:30)
[2018-06-27] MEDS: LOSARTAN POTASSIUM 50 MG TABLET PO SCH (08:30)
[2018-06-27] MEDS: FUROSEMIDE 20 MG TABLET PO SCH (08:30)
[2018-06-27] MEDS: DONEPEZIL HCL 5 MG TABLET PO SCH (08:30)
[2018-06-27] MEDS: METOPROLOL SUCCINATE 25 MG TABLET.SA PO SCH (08:31)
[2018-06-27] MEDS: ASPIRIN 325 MG TABLET.DR PO SCH (08:31)
[2018-06-27] MEDS ORDERED: POLYETHYLENE GLYCOL 3350 119 GM BTL PO SCH (09:00)
[2018-06-27] MEDS: ENOXAPARIN SODIUM 40 MG/0.4 ML SYRG SC SCH (13:23)
[2018-06-27] MEDS: LORATADINE 10 MG TABLET PO SCH (21:09)
[2018-06-27] MEDS: MIRTAZAPINE 15 MG TABLET PO SCH (21:09)
[2018-06-28 05:56] LABS: Hematocrit 42.1 % (37.0-47.0); Hemoglobin 14.3 gm/dL (12.5-16.0); Mean Cell Volume 111.4 fl (78-100); Mean Corpuscular Hemoglobin 37.8 pg (27-31); Mean Platelet Volume 10.1 fl (8-12.5); Neutrophil # 5.6 K/mm3 (1.3-6.0); Neutrophil % 73.9 % (42-75.0); Platelet Count 361 K/mm3 (150-450); Red Blood Count 3.78 M/mm3 (4.2-5.4); Red Cell Distribution Width 14.6 % (11.5-14.0); White Blood Count 7.6 K/mm3 (4.0-10.5)
[2018-06-28] MEDS: LEVOTHYROXINE SODIUM 150 MCG TABLET PO SCH (06:34)
[2018-06-28 06:45] LABS: Albumin * 3.6 gm/dl (3.4-5.0); BUN/Creatinine Ratio 16.3 (9.0-21.6); Bilirubin, Total 0.9 mg/dL (0.0-1.1); Chol/HDL Risk Ratio 4.6 mg/dL (3.3-4.4); Folate 16.2 ng/mL (8.6-58.9); Potassium 3.3 mmol/L (3.4-4.6); Total Protein 6.7 gm/dL (6.2-8.2)
[2018-06-28 07:00] LABS: Anion Gap 13.2 mmol/L (6.8-13.8); Carbon Dioxide 23.1 mmol/L (24-32.6)
[2018-06-28] MEDS ORDERED: POTASSIUM CHLORIDE 20 MEQ TABLET.SA PO ONE (08:13)
[2018-06-28] MEDS ORDERED: POLYETHYLENE GLYCOL 3350 119 GM BTL PO SCH (09:00)
[2018-06-28] MEDS: DONEPEZIL HCL 5 MG TABLET PO SCH (09:38)
[2018-06-28] MEDS: METOPROLOL SUCCINATE 25 MG TABLET.SA PO SCH (09:38)
[2018-06-28] MEDS: ASPIRIN 325 MG TABLET.DR PO SCH (09:38)
[2018-06-28] MEDS: LOSARTAN POTASSIUM 50 MG TABLET PO SCH (09:38)
[2018-06-28] MEDS: HYDROXYUREA 500 MG CAPSULE PO SCH (09:39)
[2018-06-28] MEDS: FUROSEMIDE 20 MG TABLET PO SCH (09:39)
[2018-06-28] MEDS: POTASSIUM CHLORIDE 10 MEQ TABLET.SA PO SCH (09:47)
--- NOTE | 2018-06-28 10:33 | DS ---
(1) Slurred speech Problem: Acute (2) Ischemic stroke Problem: Acute (3) Facial droop due to stroke Problem: Acute Description of Stay: HOSPITAL COURSE: The patient was admitted for left sided facial droop and slurred speech. She is unable to have an MRI secondary to having a pacemaker. Her presentation is consistent with an ischemic stroke and she has multiple risk factors for having a stroke so was treated as an acute ischemic stroke. Her home aspirin was discontinued and she was switched to plavix. She was also started on a low dose of atorvastatin 10mg. She will need to have a follow-up lipid panel and CMP in approximately 3 months. Labs also revealed an elevated TSH and her home levothyroxine was increased to 175mcg daily. She will need a repeat TSH and free T4 in 6-8 weeks. These follow up labs have been ordered. Given the patient's new diagnosis of acute ischemic stroke which included multiple medication changes, the patient would benefit from home health services including RN and bath aide. I have completed the [id number] for home health care and the patient's PCP, Dr. Sharma, will provide ongoing care for the patient after discharge. Procedures Performed: none Results and Findings: Lab Pending Results 06/26/18 09:06: WBC 7.5, RBC 3.71 L, Hgb 14.2, Hct 41.7, MCV 112.4 H, MCH 38.3 H, MCHC 34.1, RDW 14.6 H, Plt Count 375, MPV 9.6, Immature Gran % (Auto) 1.20 H, Immature Gran # (Auto) 0.09 H, Neutrophils % 77.5 H, Lymphocytes % 12.5 L, Monocytes % 6.4, Eosinophils % 0.9, Basophils % 1.5 H, Nucleated RBC % 0.0, Neutrophils # 5.9, Lymphocytes # 0.94 L, Monocytes # 0.5, Eosinophils # 0.1, Absolute Basophils 0.1 06/26/18 09:06: PT 10.9, INR (Anticoag Therapy) 1.09, PTT (Melecio) 28.2 06/26/18 09:06: Sodium 135, Plasma Sodium 135, Potassium 3.5, Chloride 102, Carbon Dioxide 27.7, Anion Gap 8.8, BUN 12, Creatinine 0.75, Est GFR (Non-Af Amer) 78, BUN/Creatinine Ratio 16.0, Random Glucose 105, Calcium 8.7, Calcium Adj for Albumin 8.5, Magnesium 2.0, Total Bilirubin 1.0, AST 18, ALT 20, Alkaline Phosphatase 88, Total Protein 7.2, Albumin 3.9 06/28/18 05:40: WBC 7.6, RBC 3.78 L, Hgb 14.3, Hct 42.1, MCV 111.4 H, MCH 37.8 H, MCHC 34.0, RDW 14.6 H, Plt Count 361, MPV 10.1, Immature Gran % (Auto) 0.90 H, Immature Gran # (Auto) 0.07 H, Neutrophils % 73.9, Lymphocytes % 15.4 L, Monocytes % 7.1, Eosinophils % 1.6, Basophils % 1.1 H, Nucleated RBC % 0.0, Neutrophils # 5.6, Lymphocytes # 1.17 L, Monocytes # 0.5, Eosinophils # 0.1, Absolute Basophils 0.1 06/28/18 05:40: Sodium 137, Plasma Sodium 137, Potassium 3.3 L, Chloride 104, Carbon Dioxide 23.1 L, Anion Gap 13.2, BUN 13, Creatinine 0.80, Est GFR (Non-Af Amer) 72, BUN/Creatinine Ratio 16.3, Random Glucose 96, Calcium 8.0, Calcium Adj for Albumin 8.0 L, Total Bilirubin 0.9, AST 15, ALT 16 L, Alkaline Phosphatase 82, Total Protein 6.7, Albumin 3.6, Triglycerides 143, Cholesterol 194, LDL Cholesterol 123, VLDL Cholesterol 29, HDL Cholesterol 42, Cholesterol/HDL Ratio 4.6 H, Vitamin B12 514, Folate 16.2, TSH (Reflex) 5.654 H 06/28/18 06:56: Free T4 1.09 Discharge Location: [facility] Disposition: [facility] Agency: [facility] Condition: Stable Face to Face Encounter completed per CMS Guidelines: Yes Discharge Activity: Activity as tolerated Discharge Diet: Resume usual diet Referrals: Mazin Sharma MD [Primary Care Provider] - Problem Oriented Discharge Instructions to Patient/Family: Stroke Prevention, [id number] Additional Patient Instructions (free text): -Follow-up with PCP, Dr. Sharma, within 1-2 weeks -[facility] at discharge with RN and bath aide - Follow up with Dr. Sharma 07/06 at 1:45pm. - LAB CMP , Lipid Profile in 3 months - LAB T4 Free in 6 weeks - LAB TSH in 6 months Prescriptions (Any new or edited meds): Atorvastatin Calcium 10 mg PO HS #30 tablet Clopidogrel Bisulfate [Plavix] 75 mg PO DAILY #30 tablet Levothyroxine Sodium [Synthroid] 175 mcg PO DAILY #30 tab Complete Home Medications List: Complete Home Medication List: Docusate Sodium [Colace] 100 mg PO BID PRN 01/18/18 Simethicone [Gas-X] 125 mg PO PRN 01/18/18 Wheat Dextrin [Benefiber] 152 gm PO DAILY PRN 01/18/18 Donepezil HCl [Aricept] 5 mg PO DAILY 02/03/18 Ipratropium [place] [Atrovent Hfa] 1 puff IH BID PRN 02/03/18 mirtazapine 15 mg tablet 30 mg PO HS #60 tab 04/28/18 furosemide 20 mg tablet 20 mg PO DAILY 05/21/18 lorazepam 0.5 mg tablet 0.5 mg PO DAILY PRN tab 05/21/18 metoprolol succinate ER 25 mg tablet,extended release 24 hr 25 mg PO DAILY 05/08 12/23 potassium chloride ER 10 mEq tablet,extended release 10 meq PO DAILY 05/21/18 calcium carbonate-vitamin D3 600 mg (1,500 mg)-800 unit tablet 1 tab PO DAILY #30 tab 05/31/18 fexofenadine 180 mg tablet 180 mg PO DAILY #30 tab 05/31/18 hydroxyurea 500 mg capsule 500 mg PO DAILY #30 cap 05/31/18 omega-3 fatty acids-fish oil 300 mg-1,000 mg capsule 1 cap PO DAILY #30 cap 05/31/18 vit C 150 mg-vit E 30 unit-lutein 5 [id number] 3 150 mg capsule 1 cap PO DAILY #30 cap 05/31/18 losartan 100 mg tablet 100 mg PO DAILY #90 tab 06/08/18 Acetaminophen [Tylenol] 650 mg PO Q6H PRN 06/26/18 Polyethylene Glycol 3350 [Miralax] 17 gm PO DAILY 06/26/18 Atorvastatin Calcium 10 mg PO HS #30 tablet 06/28/18 Clopidogrel Bisulfate [Plavix] 75 mg PO DAILY #30 tablet 06/28/18 Levothyroxine Sodium [Synthroid] 175 mcg PO DAILY #30 tab 06/28/18 Amb Orders for Discharge: Comprehensive Metabolic Panel Time Frame: 3 Months, Location: Laboratory T4 Free * Time Frame: 6 Weeks, Location: Laboratory Lipid Profile Time Frame: 3 Months, Location: Laboratory TSH * Time Frame: 6 Months, Location: Laboratory
[2018-06-28] MEDS: ENOXAPARIN SODIUM 40 MG/0.4 ML SYRG SC SCH (12:38)
--- NOTE | 2018-06-28 14:33 | ECHO ---
This report is available in the EMR
[2018-06-28 14:51] VITALS: BP 153/85
--- NOTE | 2018-07-12 17:49 | HP ---
Chief Complaint - Chief Complaint Date of Service: 06/26/18 Time of Service: 15:45 Chief Complaint: Slurred speech, off balance History of Present Illness: The patient woke up this AM with slurred speech and she felt off balance like she was going to fall to the left side. She states she was at her baseline/normal when she went to bed yesterday evening. The patient denies any similar episodes. She denies any headache, numbness or tingling, neck pain or stiffness, changes in vision or ringing in her ears. Medical History (Last Reviewed 07/04/18 @ 23:22 by Lexus Mckeon MD) Osteoarthritis (Chronic) Onset Date: Unknown Left bundle branch block (Chronic) Onset Date: Unknown Hypothyroidism (Chronic) Onset Date: Unknown Hypertension (Chronic) Onset Date: Unknown Hyperlipidemia (Chronic) Onset Date: Unknown Depression (Chronic) Onset Date: Unknown CHF (congestive heart failure) (Chronic) Onset Date: Unknown COPD (chronic obstructive pulmonary disease) (Chronic) Onset Date: Unknown Cardiomyopathy (Chronic) Onset Date: Unknown mild non-ischemic cardiomyopathy Atrial fibrillation (Chronic) Onset Date: ~2009 Anxiety (Chronic) Onset Date: Unknown Fracture of lumbar spine Onset Date: ~2016 lower back fracture from fall Thrombocytosis Onset Date: ~04/1997 Diagnosed with essential thrombocythemia by Dr. Robles and on hydroxyurea Surgical History: Surgical History (Last Reviewed 07/04/18 @ 23:22 by Lexus Mckeon MD) H/O colonoscopy Onset Date: ~2007 History of appendectomy Onset Date: Unknown History of lumpectomy Onset Date: ~2005 right breast History of thyroidectomy Onset Date: ~2004 Pacemaker Onset Date: ~07/13/14 [facility] S[facility]P MECHE-BSO Onset Date: ~1965 Patient thinks tubes and ovaries removed Family History: Family History (Last Updated 07/04/18 @ 23:11 by Claire Robbins RN) Father , age unknown Alcohol drinking problem Liver and esophagus problems due to drinking CVA (cerebral vascular accident) Hypertension Mother , unknown age AAA (abdominal aortic aneurysm) Grandmother , unknown age CVA (cerebral vascular accident) several maternal Family/Other Hypothyroidism Great grandson Social History: Patient Lives/Resources [place] Utilized Occupation Retired Preferred Language [place] Do you have any cheondoism or No cultural preference? Smoking Status Current every day smoker Have you smoked in the past 12 Yes months Do you dip or chew tobacco No Abuse History No History of abuse Psych History No pertinent hx Alcohol Use none Drug Use none (Last Updated 05/21/18 @ 09:08 by Paulina Fernandes RN) No Social History Section defined Review Of Systems (GEN) - Review of Systems Generalized/Overall Review: Present: Weakness, Fatigue. Absent: Fever EENTM: Present: No Symptoms Reported Respiratory: Present: No Symptoms Reported Cardiac: Present: No Symptoms Reported Abdominal: Present: No Symptoms Reported Genitourinary: Present: No Symptoms Reported Neurological: Present: Other - slurred speech, off balance Misc: All systems neg except as marked Immunizations: IMMUNIZATION HX Immunizations Up to Date Yes History of Influenza Vaccine Yes Hx Pneumococcal Vaccination Yes Allergies/Adverse Reactions: Allergies Allergy/AdvReac Type Severity Reaction Status Date / Time Penicillins Allergy Unknown lump/itching Verified 07/04/18 23:12 at injection site Sulfa (Sulfonamide Allergy Unknown rash Verified 07/04/18 23:12 Antibiotics) [Sulfa(Sulfonamide Antibiotics)] adhesive Allergy rash Verified 07/04/18 23:12 streptomycin Allergy "made me Verified 07/04/18 23:12 sick" Home Medications: HOME MEDICATIONS Docusate Sodium [Colace] 100 mg PO BID PRN 01/18/18 [Last Taken Unknown] Simethicone [Gas-X] 125 mg PO PRN 01/18/18 [Last Taken Unknown] Wheat Dextrin [Benefiber] 152 gm PO DAILY PRN 01/18/18 [Last Taken Unknown] Ipratropium [place] [Atrovent Hfa] 1 puff IH BID PRN 02/03/18 [Last Taken Unknown] mirtazapine 15 mg tablet 30 mg PO HS #60 tab 04/28/18 [Last Taken Unknown] furosemide 20 mg tablet 20 mg PO DAILY 05/21/18 [Last Taken Unknown] lorazepam 0.5 mg tablet 0.5 mg PO DAILY PRN tab 05/21/18 [Last Taken Unknown] potassium chloride ER 10 mEq tablet,extended release 10 meq PO DAILY 05/21/18 [Last Taken Unknown] calcium carbonate-vitamin D3 600 mg (1,500 mg)-800 unit tablet 1 tab PO DAILY #30 tab 05/31/18 [Last Taken Unknown] fexofenadine 180 mg tablet 180 mg PO DAILY #30 tab 05/31/18 [Last Taken Unknown] hydroxyurea 500 mg capsule 500 mg PO DAILY #30 cap 05/31/18 [Last Taken Unknown] losartan 100 mg tablet 100 mg PO DAILY #90 tab 06/08/18 [Last Taken Unknown] Acetaminophen [Tylenol] 650 mg PO Q6H PRN 06/26/18 [Last Taken Unknown] Polyethylene Glycol 3350 [Miralax] 17 gm PO DAILY 06/26/18 [Last Taken Unknown] Levothyroxine Sodium [Synthroid] 175 mcg PO DAILY #30 tab 06/28/18 [Last Taken Unknown] donepezil 5 mg tablet 5 mg PO DAILY #90 tab 06/29/18 [Last Taken Unknown] Vit C/Vit E/Lutein/Min/[place]-3 [Ocuvite Softgel] 1 cap PO QAM 07/04/18 [Last Taken 07/04/18 08:00] Apixaban [Eliquis] 2.5 mg PO BID #60 tablet 07/05/18 [Last Taken Unknown] Atorvastatin Calcium 40 mg PO HS #30 tablet 07/05/18 [Last Taken Unknown] Metoprolol Succinate 50 mg PO DAILY #90 tab 07/05/18 [Last Taken Unknown] Exam - Exam Vital Signs: Vital Signs - Last Taken Temp 36.9 C 06/28/18 14:50 Pulse 76 06/28/18 14:50 Resp 16 06/28/18 14:50 BP 153/85 H 06/28/18 14:50 Pulse Ox 97 06/28/18 14:50 Constitutional: Present: Alert, Oriented x3, Cooperative, No distress, Elderly, Thin and frail ENT Exam: Present: hard of hearing, moist mucous membranes Eye Exam: bilateral eye: normal inspection Neck: Present: non-tender, normal inspection, trachea midline Back Exam: Present: no CVA tenderness Respiratory: Present: lungs clear, normal breath sounds, no respiratory distress, no accessory muscle use Cardiovascular/Chest: Present: regular rate, rhythm Abdomen: Present: soft, nontender, nondistended, hypoactive Extremity: Present: normal range of motion, normal inspection Skin Exam: Present: normal color, warm/dry Neurologic: Present: facial droop - left, other - slurred speech Appearance: Present: appropriate appearance, neat Eye contact: Present: cooperative, good eye contact Thoughts: Present: normal thought pattern, no apparent hallucination Diagnostic Studies: Laboratory Results WBC 7.6 K/mm3 (4.0-10.5) 06/28/18 05:40 RBC 3.78 M/mm3 (4.2-5.4) L 06/28/18 05:40 Hgb 14.3 gm/dL (12.5-16.0) 06/28/18 05:40 Hct 42.1 % (37.0-47.0) 06/28/18 05:40 MCV 111.4 fl (78-100) H 06/28/18 05:40 MCH 37.8 pg (27-31) H 06/28/18 05:40 MCHC 34.0 g/dl (32-36) 06/28/18 05:40 RDW 14.6 % (11.5-14.0) H 06/28/18 05:40 Plt Count 361 K/mm3 (150-450) 06/28/18 05:40 MPV 10.1 fl (8-12.5) 06/28/18 05:40 Immature Gran % (Auto) 0.90 % (0.001-0.429) H 06/28/18 05:40 Immature Gran # (Auto) 0.07 K/mm3 (0.000-0.0310) H 06/28/18 05:40 Neutrophils % 73.9 % (42-75.0) 06/28/18 05:40 Lymphocytes % 15.4 % (20-51) L 06/28/18 05:40 Monocytes % 7.1 % (0.0-9) 06/28/18 05:40 Eosinophils % 1.6 % (0.0-3.0) 06/28/18 05:40 Basophils % 1.1 % (0.0-1.0) H 06/28/18 05:40 Nucleated RBC % 0.0 k/mm3 (0-1) 06/28/18 05:40 Neutrophils # 5.6 K/mm3 (1.3-6.0) 06/28/18 05:40 Lymphocytes # 1.17 k/mm3 (1.5-3.5) L 06/28/18 05:40 Monocytes # 0.5 k/mm3 (0.0-1.0) 06/28/18 05:40 Eosinophils # 0.1 k/mm3 (0.0-0.7) 06/28/18 05:40 Absolute Basophils 0.1 k/mm3 (0.0-0.1) 06/28/18 05:40 PT 10.9 Seconds (9.0-11.0) 06/26/18 09:06 INR (Anticoag Therapy) 1.09 INR (0.90-1.10) 06/26/18 09:06 PTT (Melecio) 28.2 Seconds (24-32) 06/26/18 09:06 Sodium 137 mmol/L (132-142) 06/28/18 05:40 Plasma Sodium 137 mmol/L (130-142) 06/28/18 05:40 Potassium 3.3 mmol/L (3.4-4.6) L 06/28/18 05:40 Chloride 104 mmol/L (97-106) 06/28/18 05:40 Carbon Dioxide 23.1 mmol/L (24-32.6) L 06/28/18 05:40 Anion Gap 13.2 mmol/L (6.8-13.8) 06/28/18 05:40 BUN 13 mg/dL (3-23) 06/28/18 05:40 Creatinine 0.80 mg/dL (0.4-1.4) 06/28/18 05:40 Est GFR (Non-Af Amer) 72 mL/min (60-130) 06/28/18 05:40 BUN/Creatinine Ratio 16.3 (9.0-21.6) 06/28/18 05:40 Random Glucose 96 mg/dL (70-110) 06/28/18 05:40 Calcium 8.0 mg/dL (7.9-10.9) 06/28/18 05:40 Calcium Adj for Albumin 8.0 mg/dL (8.4-10.2) L 06/28/18 05:40 Magnesium 2.0 mg/dL (1.2-2.8) 06/26/18 09:06 Total Bilirubin 0.9 mg/dL (0.0-1.1) 06/28/18 05:40 AST 15 U/L (0-48) 06/28/18 05:40 ALT 16 U/L (19-67) L 06/28/18 05:40 Alkaline Phosphatase 82 U/L (50-170) 06/28/18 05:40 Total Protein 6.7 gm/dL (6.2-8.2) 06/28/18 05:40 Albumin 3.6 gm/dl (3.4-5.0) 06/28/18 05:40 Triglycerides 143 mg/dL (30-200) 06/28/18 05:40 Cholesterol 194 mg/dL (0-200) 06/28/18 05:40 LDL Cholesterol 123 mg/dL (70-130) 06/28/18 05:40 VLDL Cholesterol 29 mg/dL (5-40) 06/28/18 05:40 HDL Cholesterol 42 mg/dL (40-60) 06/28/18 05:40 Cholesterol/HDL Ratio 4.6 mg/dL (3.3-4.4) H 06/28/18 05:40 Vitamin B12 514 pg/mL (193-986) 06/28/18 05:40 Folate 16.2 ng/mL (8.6-58.9) 06/28/18 05:40 TSH (Reflex) 5.654 uIU/mL (0.358-3.74) H 06/28/18 05:40 Free T4 1.09 ng/dL (0.76-1.46) 06/28/18 06:56 Free T3 2.0 pg/mL L 06/28/18 06:56 Thyroid Peroxidase Ab 4 IU/mL 06/28/18 06:56 Assessment/Plan - Narrative Narrative: Patient's presentation consistent with an acute ischemic stroke (given no bleed seen on non-contrast head CT completed in the ED). She is unable to have an MRI secondary to having a pacemaker. We will complete additional stroke up including bilateral carotid doppler ultrasound, 2D complete echocardiogram with bubble study, fasting lipid panel in the AM, TSH. The patient is on aspirin at home so she will be switched to Plavix. We will plan to start the patient on atorvastatin but we will see what her fasting lipid panel in the AM looks like first. PT, OT and BALL FRINGE MACHINE OPERATOR consulted for evaluation and treatment. - Assessment/Plan (1) Slurred speech Problem: Acute (2) Ischemic stroke Problem: Acute (3) Facial droop due to stroke Problem: Acute
--- NOTE | 2018-07-12 17:50 | PN ---
Subjective - Date and Time Seen Date: 06/27/18 Time: 08:35 Subjective Narrative: Patient seen and examined at bedside. Patient's daughter also present in the room at the time of my exam. No acute issues overnight. Patient denies any new issues or concerns this AM. When asked about her mother's left sided facial droop, the patient's daughter states that she did not previously have a facial droop like that (since I have never seen the patent before this admission, I was not sure what the patient looked like previously and whether she or not she had previously had a facial droop). Objective - Review of Systems Generalized/Overall Review: Reports: Weakness, Fatigue EENTM: Reports: No Symptoms Reported Respiratory: Reports: No Symptoms Reported Cardiac: Reports: No Symptoms Reported Abdominal: Reports: No Symptoms Reported Genitourinary Symptoms: Reports: No Symptoms Reported Musculoskeletal Complaints: Reports: No Symptoms Reported Neurological: Reports: Other - slurred speech Misc: All systems neg except as marked - Vitals Vitals: Last Vital Signs Temp 36.9 C 06/28/18 14:50 Pulse 76 06/28/18 14:50 Resp 16 06/28/18 14:50 BP 153/85 H 06/28/18 14:50 Pulse Ox 97 06/28/18 14:50 - Exam Constitutional: Present: Alert, Oriented x3, Cooperative, No distress, Elderly, Thin and frail ENT Exam: Present: hard of hearing, moist mucous membranes, other - dentures Respiratory: Present: lungs clear, normal breath sounds, no respiratory dist ress, no accessory muscle use Cardiovascular/Chest: Present: regular rate, rhythm Abdomen: Present: soft, nontender, nondistended, hypoactive Skin Exam: Present: normal color, warm/dry Neurologic: Present: alert, normal mood/affect, oriented x 3, facial droop - left Appearance: Present: appropriate appearance, appropriate insight, neat Eye contact: Present: cooperative, good eye contact Thoughts: Present: normal thought pattern, no apparent hallucination Assessment/Plan Plan Narrative: Patient's presentation consistent with an acute ischemic stroke (given no bleed seen on non-contrast head CT completed in the ED). She is unable to have an MRI secondary to having a pacemaker. Orders placed to complete additional stroke up including bilateral carotid doppler ultrasound, 2D complete echocardiogram with bubble study, fasting lipid panel in the AM, TSH. Continue Plavix daily. We will plan to start the patient on atorvastatin but we will see what her fasting lipid panel in the AM looks like first. Continue PT, OT, and JUNIOR LOAN PROCESSOR evaluation and treatment. Patient will likely be discharged home tomorrow and she would benefit from home health care services at discharge. - Problems/Diagnosis (1) Slurred speech Problem: Acute (2) Ischemic stroke Problem: Acute (3) Facial droop due to stroke Problem: Acute
== END 2018-06-28 15:11 | disposition home health service (06) ==
LOC: MS 08:41 → ER 08:41
PROVIDERS: ADMIT Internal Medicine; ATTEND Internal Medicine
DX: Z72.0 Tobacco use; I50.9 Heart failure, unspecified; I11.0 Hypertensive heart disease with heart failure; R47.81 Slurred speech; I67.82 Cerebral ischemia; J44.9 Chronic obstructive pulmonary disease, unspecified; E78.5 Hyperlipidemia, unspecified; E03.9 Hypothyroidism, unspecified
CPT/HCPCS: 36415; 70450; 70496; 70498; 71020; 71046; 80053; 80061; 82607; 82746; 83735; 84439; 84443; 84481; 85025; 85610; 85730; 86376; 87081; 92522; 93005; 93306; 93880; 96372; 97161; 97165; 99284; G0378; G8978; G8979; G8980; G8984; G8985; G8986; G9162; G9163; G9164

== ENCOUNTER 2018-07-04 20:07 | Observation (INO) | payer MEDICARE, OTHER ==
--- NOTE | 2018-07-04 20:27 | ERNOTE ---
Neuro HPI ER Record Time Seen by Provider: 07/04/18 20:07 Source: other Immunizations: IMMUNIZATION HX Immunizations Up to Date Yes History of Influenza Vaccine Yes Hx Pneumococcal Vaccination Yes Allergies/Adverse Reactions: Allergies Allergy/AdvReac Type Severity Reaction Status Date / Time Penicillins Allergy Unknown lump/itching Verified 07/04/18 23:12 at injection site Sulfa (Sulfonamide Allergy Unknown rash Verified 07/04/18 23:12 Antibiotics) [Sulfa(Sulfonamide Antibiotics)] adhesive Allergy rash Verified 07/04/18 23:12 streptomycin Allergy "made me Verified 07/04/18 23:12 sick" Home Medications: HOME MEDICATIONS Docusate Sodium [Colace] 100 mg PO BID PRN 01/18/18 [Last Taken Unknown] Simethicone [Gas-X] 125 mg PO PRN 01/18/18 [Last Taken Unknown] Wheat Dextrin [Benefiber] 152 gm PO DAILY PRN 01/18/18 [Last Taken Unknown] Ipratropium [place] [Atrovent Hfa] 1 puff IH BID PRN 02/03/18 [Last Taken Unknown] mirtazapine 15 mg tablet 30 mg PO HS #60 tab 04/28/18 [Last Taken Unknown] furosemide 20 mg tablet 20 mg PO DAILY 05/21/18 [Last Taken Unknown] lorazepam 0.5 mg tablet 0.5 mg PO DAILY PRN tab 05/21/18 [Last Taken Unknown] potassium chloride ER 10 mEq tablet,extended release 10 meq PO DAILY 05/21/18 [Last Taken Unknown] calcium carbonate-vitamin D3 600 mg (1,500 mg)-800 unit tablet 1 tab PO DAILY #30 tab 05/31/18 [Last Taken Unknown] fexofenadine 180 mg tablet 180 mg PO DAILY #30 tab 05/31/18 [Last Taken Unknown] hydroxyurea 500 mg capsule 500 mg PO DAILY #30 cap 05/31/18 [Last Taken Unknown] omega-3 fatty acids-fish oil 300 mg-1,000 mg capsule 1 cap PO DAILY #30 cap 05/31/18 [Last Taken Unknown] losartan 100 mg tablet 100 mg PO DAILY #90 tab 06/08/18 [Last Taken Unknown] Acetaminophen [Tylenol] 650 mg PO Q6H PRN 06/26/18 [Last Taken Unknown] Polyethylene Glycol 3350 [Miralax] 17 gm PO DAILY 06/26/18 [Last Taken Unknown] Atorvastatin Calcium 10 mg PO HS #30 tablet 06/28/18 [Last Taken Unknown] Clopidogrel Bisulfate [Plavix] 75 mg PO DAILY #30 tablet 06/28/18 [Last Taken Unknown] Levothyroxine Sodium [Synthroid] 175 mcg PO DAILY #30 tab 06/28/18 [Last Taken Unknown] donepezil 5 mg tablet 5 mg PO DAILY #90 tab 06/29/18 [Last Taken Unknown] metoprolol succinate ER 25 mg tablet,extended release 24 hr 25 mg PO DAILY #90 tab 06/29/18 [Last Taken Unknown] Vit C/Vit E/Lutein/Min/[place]-3 [Ocuvite Softgel] 1 cap PO QAM 07/04/18 [Last Taken 07/04/18 08:00] - History of Present Illness Narrative: [facility] staff reports that around 19:30 patient had her blood pressure checked and was noticed to have right arm weakness and garbled speech, patient states that symptoms started 1 or 2 hours ago, they have resolved on arrival in the ER Patient was admitted to the hospital for similar symptoms 06/26-, 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 She was unable to have an MRI due to her pacemaker and she was switched from aspirin to plavix. Per daughter and patient she is taking her own medications and has been on both plavix and aspirin Date (Duration): 07/04/18 - Character of Deficits Additional Deficits: Present: impaired speech. Absent: vision problems Baseline Cognition: Present: alert, oriented x 4 Baseline Gait: Present: walks w/o assistance Associated Symptoms: Denies: fever/chills, chest pain Prior Treament: Reports: recently seen, similar symptoms before Review of Systems - Review of Systems Constitutional: Present: recent illness. Absent: fever, chills EYE: Absent: vision changes ENT: Present: no symptoms reported Respiratory: Absent: shortness of breath Cardiology: Absent: chest pain Gastrointestinal/Abdominal: Absent: nausea, abdominal pain Genitourinary: Present: no symptoms reported Musculoskeletal: Absent: back pain Neurological: Present: See HPI. Absent: headache Medical History (Last Reviewed 07/04/18 @ 23:22 by Lexus Mckeon MD) Osteoarthritis (Chronic) Onset Date: Unknown Left bundle branch block (Chronic) Onset Date: Unknown Hypothyroidism (Chronic) Onset Date: Unknown Hypertension (Chronic) Onset Date: Unknown Hyperlipidemia (Chronic) Onset Date: Unknown Depression (Chronic) Onset Date: Unknown CHF (congestive heart failure) (Chronic) Onset Date: Unknown COPD (chronic obstructive pulmonary disease) (Chronic) Onset Date: Unknown Cardiomyopathy (Chronic) Onset Date: Unknown mild non-ischemic cardiomyopathy Atrial fibrillation (Chronic) Onset Date: ~2009 Anxiety (Chronic) Onset Date: Unknown Fracture of lumbar spine Onset Date: ~2016 lower back fracture from fall Thrombocytosis Onset Date: ~04/1997 Diagnosed with essential thrombocythemia by Dr. Robles and on hydroxyurea Surgical History: Surgical History (Last Reviewed 07/04/18 @ 23:22 by Lexus Mckeon MD) H/O colonoscopy Onset Date: ~2007 History of appendectomy Onset Date: Unknown History of lumpectomy Onset Date: ~2005 right breast History of thyroidectomy Onset Date: ~2004 Pacemaker Onset Date: ~07/13/14 [facility] S/P MECHE-BSO Onset Date: ~1965 Patient thinks tubes and ovaries removed Family History: Family History (Last Updated 07/04/18 @ 23:11 by Claire Robbins RN) Father , age unknown Alcohol drinking problem Liver and esophagus problems due to drinking CVA (cerebral vascular accident) Hypertension Mother , unknown age AAA (abdominal aortic aneurysm) Grandmother , unknown age CVA (cerebral vascular accident) several maternal Family/Other Hypothyroidism Great grandson Social History: Preferred Language Turkmen Smoking Status Current every day smoker Abuse History No History of abuse Psych History No pertinent hx (Last Updated 05/21/18 @ 09:08 by Paulina Fernandes RN) No Social History Section defined Physical Exam - Physical Exam General Appearance: Present: wd/wn, alert, no apparent distress Head Exam: Present: normal inspection, no evidence of injury Eye Exam: Normal inspection: bilateral, PERRL: bilateral, EOMI: bilateral Ears, Nose, Throat: Present: normal pharynx Neck: Present: normal inspection, nontender, supple Respiratory: Present: no respiratory distress, normal breath sounds, lungs clear Cardiovascular/Chest: Present: regular rate, rhythm, no murmur Gastrointestinal/Abdominal: Present: nontender, nondistended Extremity Exam: Present: no edema Neurological Exam: Present: alert, oriented, normal mood/affect, no motor/sensory deficits, route specialist II-XII nml as tested, normal cerebellar test. Absent: facial droop Skin Exam: Present: normal color, warm/dry Initial Stroke Assessment - Date/Time of assessment Stroke Scale Date: 07/04/18 Stroke Scale Time: 20:07 - NIH Stroke Scale Level of Consciousness: Alert LOC Questions (Year and Age): Answers both correctly LOC Commands (open/close eyes/fist): Performs both correctly Lateral Gaze Paresis: None Visual Field Loss: No visual loss Facial Palsy: Normal movement Right Arm Motor (10 sec hold): No drift Left Arm Motor (10 sec hold): No drift Right Leg Motor (5 sec hold): No drift Left Leg Motor (5 sec hold): No drift Limb Ataxia (finger/nose heel/trent): Absent Sensory Loss (pinprick arms/legs/face): No sensory loss Language Aphasia (description/naming/reading): No aphasia; normal Dysarthria (speech clarity): Normal articulation Neglect Inattention (visual/tactile/auditory/spatial/person): No neglect Initial Stroke Scale Score:: 0 ED Progress - Results and Orders Patient's Lab Results:: I have reviewed the patient's lab results. - Vital Signs Patient's Vital Signs:: I have reviewed the patient's vital signs. - EKG EKG: unchanged from, changed from - pacemaker EKG EKG read: Interp. by me - X-Ray X-Ray #1 X-Ray: chest - cardiomegaly, no acute changes Interpretation: Interp. by me - CT/Ultrasound CT/Ultrasound Narrative: CT head: no acute - Progress/Reassessment Progress Note-Subjective: 07/04/18 20:22 unchanged symptoms 07/04/18 20:45 CT discussed with radiology service 07/04/18 21:29 patient has history of afib, the EKG shows pacemaker EKG, it is difficult to determine whether there is underlying afib, with a prior stroke, age, h/o CHF and HTN she is at high risk for recurrent stroke and might benefit from anticoagulation 07/04/18 22:04 discussed test results with patient and daughter, patient states that she was on coumadin for years, but was taken off at some point when she saw Dr Trujillo at one visit discussed that as patient has had two events within nine days she might benefit from getting started on anticoagulation though that would increase her risk of bleeding in injuries and fall, both daughter and patient agreed to start anticoagulation and get admitted 07/04/18 22:[address] Allison, okay to admit for observation, start patient on eliquis Departure Clinical Impression: TIA (transient ischemic attack) Atrial fibrillation Qualifiers: Atrial fibrillation type: unspecified Qualified Code(s): I48.91 - Unspecified atrial fibrillation - Departure Disposition: Still a patient Condition: Stable
[2018-07-04 20:31] LABS: Hematocrit 40.5 % (37.0-47.0); Hemoglobin 13.8 gm/dL (12.5-16.0); Mean Cell Volume 111.3 fl (78-100); Mean Corpuscular Hemoglobin 37.9 pg (27-31); Mean Corpuscular Hgb Conc 34.1 g/dl (32-36); Mean Platelet Volume 10.3 fl (8-12.5); Neutrophil # 5.3 K/mm3 (1.3-6.0); Neutrophil % 70.9 % (42-75.0); Platelet Count 380 K/mm3 (150-450); Red Blood Count 3.64 M/mm3 (4.2-5.4); Red Cell Distribution Width 14.2 % (11.5-14.0); White Blood Count 7.5 K/mm3 (4.0-10.5)
[2018-07-04 20:43] LABS: Prothrombin Time (Patient) 11.1 Seconds (9.0-11.0)
[2018-07-04 20:45] LABS: Albumin * 3.8 gm/dl (3.4-5.0); Anion Gap 10.2 mmol/L (6.8-13.8); BUN/Creatinine Ratio 19.1 (9.0-21.6); Bilirubin, Total 0.8 mg/dL (0.0-1.1); Ca. Corrected For Albumin 8.5 mg/dL (8.4-10.2); Calcium * 8.7 mg/dL (7.9-10.9); Carbon Dioxide 28.1 mmol/L (24-32.6); Potassium 3.3 mmol/L (3.4-4.6); Total Protein 6.9 gm/dL (6.2-8.2)
[2018-07-04 20:47] LABS: INR 1.11 INR (0.90-1.10); Partial Thrombolplastin Time 26.9 Seconds (24-32)
[2018-07-04 21:35] LABS: Urine Bilirubin Negative (NEGATIVE); Urine Blood Negative /ul (NEGATIVE); Urine Ketone Negative (NEGATIVE); Urine Nitrite Negative (NEGATIVE); Urine Protein Negative (NEGATIVE); Urine Urobilinogen Normal (NORMAL)
[2018-07-04 21:50] LABS: Urine Appearance Clear (CLEAR); Urine Bacteria None Seen; Urine Color Yellow; Urine RBC None Seen /hpf (0-5); Urine WBC TRACE /hpf (0-5)
[2018-07-05] MEDS: APIXABAN 2.5 MG TABLET PO SCH ×2 (00:19→10:13)
--- NOTE | 2018-07-05 08:47 | HP ---
Chief Complaint - Chief Complaint Date of Service: 07/05/18 Time of Service: 08:23 Chief Complaint: TIA History of Present Illness: Yumiko singer, is an 88-year-old white female, resident of the [place] , with multiple medical problems, who was admitted on 07/04/2018 because of recurrent TIA symptoms. Per assisted living nurses, the patient was observed to have right arm weakness and garbled speech while they were checking her blood pr essure around 7:30 last night. By that time the patient got to the emergency room her signs and symptoms have dissipated. She was just here on 06/28/2018 for the same signs and symptoms associated with balance problem. Her head CT scan did not show any acute intracranial process except for cerebral atrophy. 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 She has a pacemaker for her atrial fibrillation. She was on Coumadin before for this but this was stopped by Dr. Trujillo on january of 2017 because of compression fracture from her increased risk for falls due to balance problems. Ever since then she has been on a regular aspirin. She was dischargged from the last admission on Plavix by Dr. Ramos. The daughter says she has been on ASA and plavix. After discussing with the daughter and the patient about the risk of bleeding and clotting, the ED doctor started on eliquis. Medical History (Last Reviewed 07/04/18 @ 23:22 by Lexus Mckeon MD) Osteoarthritis (Chronic) Onset Date: Unknown Left bundle branch block (Chronic) Onset Date: Unknown Hypothyroidism (Chronic) Onset Date: Unknown Hypertension (Chronic) Onset Date: Unknown Hyperlipidemia (Chronic) Onset Date: Unknown Depression (Chronic) Onset Date: Unknown CHF (congestive heart failure) (Chronic) Onset Date: Unknown COPD (chronic obstructive pulmonary disease) (Chronic) Onset Date: Unknown Cardiomyopathy (Chronic) Onset Date: Unknown mild non-ischemic cardiomyopathy Atrial fibrillation (Chronic) Onset Date: ~2009 Anxiety (Chronic) Onset Date: Unknown Fracture of lumbar spine Onset Date: ~2016 lower back fracture from fall Thrombocytosis Onset Date: ~04/1997 Diagnosed with essential thrombocythemia by Dr. Robles and on hydroxyurea Surgical History: Surgical History (Last Reviewed 07/04/18 @ 23:22 by Lexus Mckeon MD) H/O colonoscopy Onset Date: ~2007 History of appendectomy Onset Date: Unknown History of lumpectomy Onset Date: ~2005 right breast History of thyroidectomy Onset Date: ~2004 Pacemaker Onset Date: ~07/13/14 [facility] MECHE-BSO Onset Date: ~1965 Patient thinks tubes and ovaries removed Family History: Family History (Last Updated 07/04/18 @ 23:11 by Claire Robbins RN) Father , age unknown Alcohol drinking problem Liver and esophagus problems due to drinking CVA (cerebral vascular accident) Hypertension Mother , unknown age AAA (abdominal aortic aneurysm) Grandmother , unknown age CVA (cerebral vascular accident) several maternal Family/Other Hypothyroidism Great grandson Social History: Patient Lives/Resources [place] Utilized Occupation Retired Preferred Language [place] Citizen Do you have any synagogue or No cultural preference? Smoking Status Current every day smoker Have you smoked in the past 12 Yes months Abuse History No History of abuse Psych History No pertinent hx Alcohol Use none Drug Use none (Last Updated 05/21/18 @ 09:08 by Paulina Fernandes RN) No Social History Section defined Review Of Systems (GEN) - Review of Systems Generalized/Overall Review: Present: Weakness. Absent: Chills, Fever EENTM: Present: Blurred Vision Respiratory: Present: Cough. Absent: Shortness of Breath Cardiac: Absent: Chest Pain, Edema, Palpitations Abdominal: Absent: Nausea, Vomiting Genitourinary: Absent: Urgency, Frequency Musculoskeletal: Present: Joint Pain, Back Pain Neurological: Present: Weakness Immunizations: IMMUNIZATION HX Immunizations Up to Date Yes History of Influenza Vaccine Yes Hx Pneumococcal Vaccination Yes Allergies/Adverse Reactions: Allergies Allergy/AdvReac Type Severity Reaction Status Date / Time Penicillins Allergy Unknown lump/itching Verified 07/04/18 23:12 at injection site Sulfa (Sulfonamide Allergy Unknown rash Verified 07/04/18 23:12 Antibiotics) [Sulfa(Sulfonamide Antibiotics)] adhesive Allergy rash Verified 07/04/18 23:12 streptomycin Allergy "made me Verified 07/04/18 23:12 sick" Home Medications: HOME MEDICATIONS Docusate Sodium [Colace] 100 mg PO BID PRN 01/18/18 [Last Taken Unknown] Simethicone [Gas-X] 125 mg PO PRN 01/18/18 [Last Taken Unknown] Wheat Dextrin [Benefiber] 152 gm PO DAILY PRN 01/18/18 [Last Taken Unknown] Ipratropium [place] [Atrovent Hfa] 1 puff IH BID PRN 02/03/18 [Last Taken Unknown] mirtazapine 15 mg tablet 30 mg PO HS #60 tab 04/28/18 [Last Taken Unknown] furosemide 20 mg tablet 20 mg PO DAILY 05/21/18 [Last Taken Unknown] lorazepam 0.5 mg tablet 0.5 mg PO DAILY PRN tab 05/21/18 [Last Taken Unknown] potassium chloride ER 10 mEq tablet,extended release 10 meq PO DAILY 05/21/18 [Last Taken Unknown] calcium carbonate-vitamin D3 600 mg (1,500 mg)-800 unit tablet 1 tab PO DAILY #30 tab 05/31/18 [Last Taken Unknown] fexofenadine 180 mg tablet 180 mg PO DAILY #30 tab 05/31/18 [Last Taken Unknown] hydroxyurea 500 mg capsule 500 mg PO DAILY #30 cap 05/31/18 [Last Taken Unknown] losartan 100 mg tablet 100 mg PO DAILY #90 tab 06/08/18 [Last Taken Unknown] Acetaminophen [Tylenol] 650 mg PO Q6H PRN 06/26/18 [Last Taken Unknown] Polyethylene Glycol 3350 [Miralax] 17 gm PO DAILY 06/26/18 [Last Taken Unknown] Levothyroxine Sodium [Synthroid] 175 mcg PO DAILY #30 tab 06/28/18 [Last Taken Unknown] donepezil 5 mg tablet 5 mg PO DAILY #90 tab 06/29/18 [Last Taken Unknown] Vit C/Vit E/Lutein/Min/[place]-3 [Ocuvite Softgel] 1 cap PO QAM 07/04/18 [Last Taken 07/04/18 08:00] Apixaban [Eliquis] 2.5 mg PO BID #60 tablet 07/05/18 [Last Taken Unknown] Atorvastatin Calcium 40 mg PO HS #30 tablet 07/05/18 [Last Taken Unknown] Metoprolol Succinate 50 mg PO DAILY #90 tab 07/05/18 [Last Taken Unknown] Exam - Exam Vital Signs: Vital Signs - Last Taken Temp 36.4 C 07/05/18 03:00 Pulse 75 07/05/18 07:35 Resp 20 07/05/18 03:00 BP 166/91 H 07/05/18 03:00 Pulse Ox 96 07/05/18 03:00 Constitutional: Present: Alert, Oriented x3, Cooperative, Elderly ENT Exam: Present: hard of hearing Eye Exam: bilateral eye: normal inspection, PERRL, EOMI Neck: Present: supple Respiratory: Present: decreased breath sounds, No rales, No wheezing Cardiovascular/Chest: Present: regular rate, rhythm, no JVD, no murmur Abdomen: Present: Normal bowel sounds, soft, nontender, nondistended Extremity: Present: no pedal edema, no calf tenderness Neurologic: Present: 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2-5.4) M/mm3 MCV (78-100) fl MCH (27-31) pg RDW (11.5-14.0) % Immature Gran % (Auto) (0.001-0.429) % Immature Gran # (Auto) (0.000-0.0310) K/mm3 Lymphocytes % (20-51) % Basophils % (0.0-1.0) % Lymphocytes # (1.5-3.5) k/mm3 PT (9.0-11.0) Seconds INR (Anticoag Therapy) (0.90-1.10) INR Potassium (3.4-4.6) mmol/L Urine WBC Trace H (0-5) /hpf Laboratory Results WBC 7.5 K/mm3 (4.0-10.5) 07/04/18 20:25 RBC 3.64 M/mm3 (4.2-5.4) L 07/04/18 20:25 Hgb 13.8 gm/dL (12.5-16.0) 07/04/18 20:25 Hct 40.5 % (37.0-47.0) 07/04/18 20:25 MCV 111.3 fl (78-100) H 07/04/18 20:25 MCH 37.9 pg (27-31) H 07/04/18 20:25 MCHC 34.1 g/dl (32-36) 07/04/18 20:25 RDW 14.2 % (11.5-14.0) H 07/04/18 20:25 Plt Count 380 K/mm3 (150-450) 07/04/18 20:25 MPV 10.3 fl (8-12.5) 07/04/18 20:25 Immature Gran % (Auto) 1.50 % (0.001-0.429) H 07/04/18 20:25 Immature Gran # (Auto) 0.11 K/mm3 (0.000-0.0310) H 07/04/18 20:25 Neutrophils % 70.9 % (42-75.0) 07/04/18 20:25 Lymphocytes % 18.4 % (20-51) L 07/04/18 20:25 Monocytes % 6.8 % (0.0-9) 07/04/18 20:25 Eosinophils % 1.2 % (0.0-3.0) 07/04/18 20:25 Basophils % 1.2 % (0.0-1.0) H 07/04/18 20:25 Nucleated RBC % 0.0 k/mm3 (0-1) 07/04/18 20:25 Neutrophils # 5.3 K/mm3 (1.3-6.0) 07/04/18 20:25 Lymphocytes # 1.38 k/mm3 (1.5-3.5) L 07/04/18 20:25 Monocytes # 0.5 k/mm3 (0.0-1.0) 07/04/18 20:25 Eosinophils # 0.1 k/mm3 (0.0-0.7) 07/04/18 20:25 Absolute Basophils 0.1 k/mm3 (0.0-0.1) 07/04/18 20:25 ESR 9 mm/hr (0-15) 07/04/18 20:25 PT 11.1 Seconds (9.0-11.0) H 07/04/18 20:25 INR (Anticoag Therapy) 1.11 INR (0.90-1.10) H 07/04/18 20:25 PTT (Melecio) 26.9 Seconds (24-32) 07/04/18 20:25 Sodium 138 mmol/L (132-142) 07/04/18 20:25 Plasma Sodium 138 mmol/L (130-142) 07/04/18 20:25 Potassium 3.3 mmol/L (3.4-4.6) L 07/04/18 20:25 Chloride 103 mmol/L (97-106) 07/04/18 20:25 Carbon Dioxide 28.1 mmol/L (24-32.6) 07/04/18 20:25 Anion Gap 10.2 mmol/L (6.8-13.8) 07/04/18 20:25 BUN 17 mg/dL (3-23) 07/04/18 20:25 Creatinine 0.89 mg/dL (0.4-1.4) 07/04/18 20:25 Est GFR (Non-Af Amer) 64 mL/min (60-130) 07/04/18 20:25 BUN/Creatinine Ratio 19.1 (9.0-21.6) 07/04/18 20:25 Random Glucose 100 mg/dL (70-110) 07/04/18 20:25 Calcium 8.7 mg/dL (7.9-10.9) 07/04/18 20:25 Calcium Adj for Albumin 8.5 mg/dL (8.4-10.2) 07/04/18 20:25 Total Bilirubin 0.8 mg/dL (0.0-1.1) 07/04/18 20:25 AST 18 U/L (0-48) 07/04/18 20:25 ALT 19 U/L (19-67) 07/04/18 20:25 Alkaline Phosphatase 90 U/L (50-170) 07/04/18 20:25 Total Protein 6.9 gm/dL (6.2-8.2) 07/04/18 20:25 Albumin 3.8 gm/dl (3.4-5.0) 07/04/18 20:25 Urine Color Yellow 07/04/18 21:31 Urine Appearance Clear (CLEAR) 07/04/18 21:31 Urine pH 7.0 pH (5.0-7.0) 07/04/18 21:31 Ur Specific [place] 1.010 SP.GR. (1.005-1.010) 07/04/18 21:31 Urine Protein Negative mg/dL (NEGATIVE) 07/04/18 21:31 Urine Glucose (UA) Negative mg/dL (NEGATIVE) 07/04/18 21:31 Urine Ketones Negative mg/dL (NEGATIVE) 07/04/18 21:31 Urine Blood Negative /ul (NEGATIVE) 07/04/18 21:31 Urine Nitrate Negative (NEGATIVE) 07/04/18 21:31 Urine Bilirubin Negative mg/dl (NEGATIVE) 07/04/18 21:31 Urine Urobilinogen Normal EU/dl (NORMAL) 07/04/18 21:31 Ur Leukocyte Esterase Negative /ul (NEGATIVE) 07/04/18 21:31 Urine RBC None seen /hpf (0-5) 07/04/18 21:31 Urine WBC Trace /hpf (0-5) H 07/04/18 21:31 Ur Epithelial Cells 0-5 /hpf (0-5) 07/04/18 21:31 Urine Bacteria None seen (NONE) 07/04/18 21:31 Urine Culture Comments No culture indicated 07/04/18 21:31 Assessment/Plan - Assessment/Plan (1) TIA (transient ischemic attack) Assessment: Recurrent. on retrospect , her falls in 2017 was likely due to her vertebral occlusion leading to balance problems. Whether this recent TIA's are cardioembolic or thrombotic it is hard to say. She was on regular ASA and it happened and then she was on Plavix and ASA and it happened again. She was started on Eliquis on this admission but she may need to be on a baby ASA to cover for both cardioembolic and/or thrombotic TIA's. Her risk for bleeding is significantly increased with this combination. Will talk to daughter who has the POA. We will refer to PT. We will refer her to neurology as an outpatient and she will keep her appointment with her dental sales representative, Amilcar Mishra this July. Will increase her Atorvastatin to 40 mg PO QHS from 5mg. ADDENDUM: discussed with daughter. She is undecided about the combination of baby ASA and eliquis. She can discuss with neurology when she sees on their appointment for this week. Problem: Acute (2) Osteoarthritis Problem: Chronic Qualifiers: Osteoarthritis location: unspecified site Osteoarthritis type: primary Qualified Code(s): M19.91 - Primary osteoarthritis, unspecified site (3) Hypothyroidism Problem: Chronic Qualifiers: Hypothyroidism type: acquired Qualified Code(s): E03.9 - Hypothyroidism, unspecified (4) Hypertension Assessment: will increase her metoprolol. continue with losartan at 100 mg . Problem: Chronic Qualifiers: Hypertension type: essential hypertension Qualified Code(s): I10 - Essential (primary) hypertension (5) Hyperlipidemia Assessment: will increase her crestor.. Problem: Chronic Qualifiers: Hyperlipidemia type: pure hypercholesterolemia Qualified Code(s): E78.00 - Pure hypercholesterolemia, unspecified; E78.0 - Pure hypercholesterolemia (6) Depression Problem: Chronic Qualifiers: Depression Type: unspecified Qualified Code(s): F32.9 - Major depressive disorder, single episode, unspecified (7) CHF (congestive heart failure) Assessment: she had ablation and pacemaker placement for her AFib which improved her diastolic function Problem: Chronic Qualifiers: Heart failure type: diastolic Heart failure chronicity: chronic Qualified Code(s): I50.32 - Chronic diastolic (congestive) heart failure (8) COPD (chronic obstructive pulmonary disease) Problem: Chronic Qualifiers: Chronic bronchitis type: unspecified (9) Atrial fibrillation Assessment: s/p ablation and pacemaker placement Problem: Chronic Qualifiers: Atrial fibrillation type: paroxysmal Qualified Code(s): I48.0 - Paroxysmal atrial fibrillation (10) Anxiety Problem: Chronic (11) Dementia Problem: Acute Qualifiers: Dementia type: Alzheimer's disease Alzheimer's disease onset: late-onset Dementia behavioral disturbance: without behavioral disturbance Qualified Code(s): G30.1 - Alzheimer's disease with late onset; F02.80 - Dementia in other diseases classified elsewhere without behavioral disturbance
[2018-07-05] MEDS ORDERED: BETA-CAROTENE(A) W-C , E/MIN 1 TAB TABLET PO SCH (09:00)
[2018-07-05] MEDS ORDERED: CALCIUM CARBONATE/VITAMIN D3 1 TAB TABLET PO SCH (09:00)
[2018-07-05] MEDS ORDERED: ACETAMINOPHEN 325 MG TABLET PO PRN (09:08)
[2018-07-05] MEDS ORDERED: IPRATROPIUM BROMIDE 0.5 MG/2.5 ML VIAL.NEB IH PRN (09:08)
[2018-07-05] MEDS ORDERED: LORazepam 0.5 MG TABLET PO PRN (09:08)
[2018-07-05] MEDS ORDERED: DOCUSATE SODIUM 100 MG CAPSULE PO PRN (09:08)
[2018-07-05] MEDS ORDERED: PSYLLIUM SEED 1 PACKET PACKET PO PRN (09:08)
[2018-07-05] MEDS ORDERED: SIMETHICONE 125 MG PO SCH (09:15)
[2018-07-05] MEDS ORDERED: POLYETHYLENE GLYCOL 3350 119 GM BTL PO SCH (10:30)
[2018-07-05] MEDS ORDERED: METOPROLOL SUCCINATE 25 MG TABLET.SA PO SCH (10:30)
[2018-07-05] MEDS ORDERED: FUROSEMIDE 20 MG TABLET PO SCH (10:30)
[2018-07-05] MEDS ORDERED: LOSARTAN POTASSIUM 50 MG TABLET PO SCH (10:30)
[2018-07-05] MEDS ORDERED: HYDROXYUREA 500 MG CAPSULE PO SCH (10:30)
[2018-07-05] MEDS ORDERED: LEVOTHYROXINE SODIUM 175 MCG TABLET PO SCH (10:30)
[2018-07-05] MEDS ORDERED: LORATADINE 10 MG TABLET PO SCH (10:30)
[2018-07-05] MEDS ORDERED: POTASSIUM CHLORIDE 10 MEQ TABLET.SA PO SCH (10:30)
[2018-07-05] MEDS ORDERED: DONEPEZIL HCL 5 MG TABLET PO SCH (10:30)
--- NOTE | 2018-07-05 13:01 | DS ---
(1) TIA (transient ischemic attack) Problem: Acute (2) Osteoarthritis Problem: Chronic Qualifiers: Osteoarthritis location: unspecified site Osteoarthritis type: primary Qualified Code(s): M19.91 - Primary osteoarthritis, unspecified site (3) Hypothyroidism Problem: Chronic Qualifiers: Hypothyroidism type: acquired Qualified Code(s): E03.9 - Hypothyroidism, unspecified (4) Hypertension Problem: Chronic Qualifiers: Hypertension type: essential hypertension Qualified Code(s): I10 - Essential (primary) hypertension (5) Hyperlipidemia Problem: Chronic Qualifiers: Hyperlipidemia type: pure hypercholesterolemia Qualified Code(s): E78.00 - Pure hypercholesterolemia, unspecified; E78.0 - Pure hypercholesterolemia (6) Depression Problem: Chronic Qualifiers: Depression Type: unspecified Qualified Code(s): F32.9 - Major depressive disorder, single episode, unspecified (7) CHF (congestive heart failure) Problem: Chronic Qualifiers: Heart failure type: diastolic Heart failure chronicity: chronic Qualified Code(s): I50.32 - Chronic diastolic (congestive) heart failure (8) COPD (chronic obstructive pulmonary disease) Problem: Chronic Qualifiers: Chronic bronchitis type: unspecified (9) Atrial fibrillation Problem: Chronic Qualifiers: Atrial fibrillation type: paroxysmal Qualified Code(s): I48.0 - Paroxysmal atrial fibrillation (10) Anxiety Problem: Chronic (11) Dementia Problem: Acute Qualifiers: Dementia type: Alzheimer's disease Alzheimer's disease onset: late-onset Dementia behavioral disturbance: without behavioral disturbance Qualified Code(s): G30.1 - Alzheimer's disease with late onset; F02.80 - Dementia in other diseases classified elsewhere without behavioral disturbance Description of Stay: Yumiko zhang, is an 88-year-old white female, resident of the [place] , with multiple medical problems in the past, who was admitted on 07/04/2018 because of recurrent TIA symptoms. Per assisted living nurses, the patient was observed to have right arm weakness and garbled speech while they were checking her blood pressure around 7:30 last night. By that time the patient got to the emergency room her signs and symptoms have dissipated. She was just here on 06/28/2018 for the same signs and symptoms associated with balance problem. Her head CT scan did not show any acute intracranial process except for cerebral atrophy. 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 She has a pacemaker for her atrial fibrillation. She was on Coumadin before for this but this was stopped by Dr. Trujillo on january of 2017 because of compression fracture from a fall due to balance problems. Ever since then she has been on a regular aspirin. She was dischargged from the last admission on Plavix by Dr. Ramos. The daughter says she has been on ASA and plavix. After discussing with the daughter and the patient about the risk of bleeding and clotting by ED physician , they agreed to start her on eliquis. She is back to her baseline w/o focal deficit. I did discuss with the daughter and the patient about being on baby ASA and eliquis as we are not sure at this time if this is cardioembolic or thrombotic. Her EKG is showing paced ventricular rhythm. I did iscuss with the daughter of the option of combining baby ASA with her Eliquis and the increased risk for bleeding. She will think about it. We will refer her to a neurologist on outpatient basis to see if she is a surgical candidate for a vertebral artery stenting or to keep her on an antiplatelet and/or anticoagulant. She will keep her appointment with Dr. German on the July. She will need to [facility] with [facility] for management of home medications. Procedures Performed: none Results and Findings: Lab Pending Results 07/04/18 20:25: WBC 7.5, RBC 3.64 L, Hgb 13.8, Hct 40.5, MCV 111.3 H, MCH 37.9 H, MCHC 34.1, RDW 14.2 H, Plt Count 380, MPV 10.3, Immature Gran % (Auto) 1.50 H, Immature Gran # (Auto) 0.11 H, Neutrophils % 70.9, Lymphocytes % 18.4 L, Monocytes % 6.8, Eosinophils % 1.2, Basophils % 1.2 H, Nucleated RBC % 0.0, Neutrophils # 5.3, Lymphocytes # 1.38 L, Monocytes # 0.5, Eosinophils # 0.1, Absolute Basophils 0.1 07/04/18 20:25: ESR 9 07/04/18 20:25: PT 11.1 H, INR (Anticoag Therapy) 1.11 H, PTT (Melecio) 26.9 07/04/18 20:25: Sodium 138, Plasma Sodium 138, Potassium 3.3 L, Chloride 103, Carbon Dioxide 28.1, Anion Gap 10.2, BUN 17, Creatinine 0.89, Est GFR (Non-Af Amer) 64, BUN/Creatinine Ratio 19.1, Random Glucose 100, Calcium 8.7, Calcium Adj for Albumin 8.5, Total Bilirubin 0.8, AST 18, ALT 19, Alkaline Phosphatase 90, Total Protein 6.9, Albumin 3.8 07/04/18 21:31: Urine Color Yellow, Urine Appearance Clear, Urine pH 7.0, Ur Specific [place] 1.010, Urine Protein Negative, Urine Glucose (UA) Negative, Urine Ketones Negative, Urine Blood Negative, Urine Nitrate Negative, Urine Bilirubin Negative, Urine Urobilinogen Normal, Ur Leukocyte Esterase Negative, Urine RBC None seen, Urine WBC Trace H, Ur Epithelial Cells 0-5, Urine Bacteria None seen, Urine Culture Comments No culture indicated Discharge Location: The [place] Disposition: [facility] Agency: [facility] Condition: Stable Discharge Activity: Activity as tolerated Discharge Diet: Low salt, Low fat/chol Referrals: Mazin Sharma MD [Primary Care Provider] - Problem Oriented Discharge Instructions to Patient/Family: Transient Ischemic Attack, [id number], Atrial Fibrillation, [id number] Additional Patient Instructions (free text): FYI : Ms. Dori Zhang has a scheduled TCM appointment with Dr. Sharma 07/06/18 at 145pm. Thank you! Claire Resume services with [facility] nursing and bath aide. Fax orders. Call report to [phone]. Make an appointment with Neurology this week. Keep her appointment with her tech intern this July. Prescriptions (Any new or edited meds): Apixaban [Eliquis] 2.5 mg PO BID #60 tablet Atorvastatin Calcium 40 mg PO HS #30 tablet Metoprolol Succinate 50 mg PO DAILY #90 tab Complete Home Medications List: Complete Home Medication List: Docusate Sodium [Colace] 100 mg PO BID PRN 01/18/18 Simethicone [Gas-X] 125 mg PO PRN 01/18/18 Wheat Dextrin [Benefiber] 152 gm PO DAILY PRN 01/18/18 Ipratropium [place] [Atrovent Hfa] 1 puff IH BID PRN 02/03/18 mirtazapine 15 mg tablet 30 mg PO HS #60 tab 04/28/18 furosemide 20 mg tablet 20 mg PO DAILY 05/21/18 lorazepam 0.5 mg tablet 0.5 mg PO DAILY PRN tab 05/21/18 potassium chloride ER 10 mEq tablet,extended release 10 meq PO DAILY 05/21/18 calcium carbonate-vitamin D3 600 mg (1,500 mg)-800 unit tablet 1 tab PO DAILY #30 tab 05/31/18 fexofenadine 180 mg tablet 180 mg PO DAILY #30 tab 05/31/18 hydroxyurea 500 mg capsule 500 mg PO DAILY #30 cap 05/31/18 losartan 100 mg tablet 100 mg PO DAILY #90 tab 06/08/18 Acetaminophen [Tylenol] 650 mg PO Q6H PRN 06/26/18 Polyethylene Glycol 3350 [Miralax] 17 gm PO DAILY 06/26/18 Levothyroxine Sodium [Synthroid] 175 mcg PO DAILY #30 tab 06/28/18 donepezil 5 mg tablet 5 mg PO DAILY #90 tab 06/29/18 Vit C/Vit E/Lutein/Min/[place]-3 [Ocuvite Softgel] 1 cap PO QAM 07/04/18 Apixaban [Eliquis] 2.5 mg PO BID #60 tablet 07/05/18 Atorvastatin Calcium 40 mg PO HS #30 tablet 07/05/18 Metoprolol Succinate 50 mg PO DAILY #90 tab 07/05/18
[2018-07-05 15:18] VITALS: BP 155/88
[2018-07-05] MEDS ORDERED: ROSUVASTATIN CALCIUM 20 MG TABLET PO SCH (21:00)
[2018-07-05] MEDS ORDERED: MIRTAZAPINE 15 MG TABLET PO SCH (21:00)
[2018-07-05] MEDS ORDERED: ROSUVASTATIN CALCIUM 10 MG TABLET PO SCH (21:00)
[2018-07-06] MEDS ORDERED: METOPROLOL SUCCINATE 50 MG TABLET.SA PO SCH (09:00)
== END 2018-07-05 15:17 | disposition home health service (06) ==
LOC: ER 20:07 → MS 20:07
PROVIDERS: ADMIT Family Medicine; ATTEND Internal Medicine
DX: E78.5 Hyperlipidemia, unspecified; I10 Essential (primary) hypertension; F41.9 Anxiety disorder, unspecified; I65.02 Occlusion and stenosis of left vertebral artery; F32.9 Major depressive disorder, single episode, unspecified; I48.0 Paroxysmal atrial fibrillation; J44.9 Chronic obstructive pulmonary disease, unspecified; E03.9 Hypothyroidism, unspecified; F02.80 Dementia in other diseases classified elsewhere, unspecified severity, without behavioral disturbance, psychotic disturbance, mood disturbance, and anxiety; M19.91 Primary osteoarthritis, unspecified site; I50.32 Chronic diastolic (congestive) heart failure; G45.9 Transient cerebral ischemic attack, unspecified; F17.210 Nicotine dependence, cigarettes, uncomplicated; G30.1 Alzheimer's disease with late onset
CPT/HCPCS: 36415; 70450; 71010; 71045; 80053; 81001; 85025; 85610; 85652; 85730; 87081; 93005; 97161; 99285; G0378; G8978; G8979; G8980

== ENCOUNTER 2019-10-11 07:29 | Observation (INO) ==
[2019-10-11 07:55] LABS: Hematocrit 31.7 % (37.0-47.0); Hemoglobin 9.8 gm/dL (12.5-16.0); Mean Cell Volume 109.7 fl (78-100); Mean Corpuscular Hemoglobin 33.9 pg (27-31); Mean Corpuscular Hgb Conc 30.9 g/dl (32-36); Mean Platelet Volume 10.6 fl (8-12.5); Neutrophil # 6.7 K/mm3 (1.3-6.0); Neutrophil % 78.9 % (42-75.0); Platelet Count 365 K/mm3 (150-450); Red Blood Count 2.89 M/mm3 (4.2-5.4); Red Cell Distribution Width 17.9 % (11.5-14.0); White Blood Count 8.5 K/mm3 (4.0-10.5)
[2019-10-11 08:03] LABS: Albumin * 3.2 gm/dl (3.4-5.0); Anion Gap 12.8 mmol/L (6.8-13.8); BUN/Creatinine Ratio 14.4 (9.0-21.6); Bilirubin, Total 1.1 mg/dL (0.0-1.1); Ca. Corrected For Albumin 8.7 mg/dL (8.4-10.2); Calcium * 8.4 mg/dL (7.9-10.9); Carbon Dioxide 27.3 mmol/L (24-32.6); Chol/HDL Risk Ratio 2.5 mg/dL (3.3-4.4); Potassium 4.1 mmol/L (3.4-4.6); T4 Free * 1.16 ng/dL (0.76-1.46); TSH * 0.649 uIU/mL (0.358-3.74); Total Protein 6.1 gm/dL (6.2-8.2)
[2019-10-11 12:10] LABS: Iron 41 mcg/dL (35-120); Transferrin Sat. (% Sat.) 15 % (15-55)
[2019-10-11] MEDS ORDERED: ACETAMINOPHEN 325 MG TABLET PO PRN (14:06)
[2019-10-11] MEDS ORDERED: LORazepam 0.5 MG TABLET PO PRN (14:06)
[2019-10-11] MEDS ORDERED: IPRATROPIUM BROMIDE 0.5 MG/2.5 ML VIAL.NEB IH PRN (14:06)
[2019-10-11] MEDS: FOLIC ACID 1 MG TABLET PO SCH (15:19)
--- NOTE | 2019-10-11 16:26 | PN ---
[place] Note - Interim Date: 10/11/19 Time: 16:23 Narrative: 10/11/19 16:24 I saw and examined the patient in the [facility] floor on 10/11/2019. I saw her in my office and admitted her directly. There is no change in my assessment and plan. She is starting her 1 unit of packed RBC. Her anemia work-up is showing that her iron levels are within normal limits, vitamin B12 was within normal limits as well, however, her folate is low. This explains her macrocytosis. Her anemia from 13 to 9.8 in 2 months is making me suspect that there is some blood loss. She has not been able to give stool for occult blood yet. My office notes will serve as my history of present illness for this admission.
[2019-10-11 19:25] LABS: Hematocrit 36.9 % (37.0-47.0); Hemoglobin 11.5 gm/dL (12.5-16.0)
[2019-10-11] MEDS: GABAPENTIN 100 MG CAPSULE PO SCH (20:49)
[2019-10-11] MEDS ORDERED: MIRTAZAPINE 15 MG TABLET PO SCH (21:00)
[2019-10-11] MEDS ORDERED: ROSUVASTATIN CALCIUM 10 MG TABLET PO SCH (21:00)
[2019-10-12] MEDS ORDERED: LEVOTHYROXINE SODIUM 137 MCG TABLET PO SCH (07:00)
[2019-10-12] MEDS ORDERED: CALCIUM CARBONATE/VITAMIN D3 1 TAB TABLET PO SCH (09:00)
[2019-10-12] MEDS ORDERED: HYDROXYUREA 500 MG CAPSULE PO SCH (09:00)
[2019-10-12] MEDS ORDERED: DONEPEZIL HCL 10 MG TABLET PO SCH (09:00)
[2019-10-12] MEDS ORDERED: LORATADINE 10 MG TABLET PO SCH (09:00)
[2019-10-12] MEDS: FOLIC ACID 1 MG TABLET PO SCH (09:35)
[2019-10-12] MEDS: GABAPENTIN 100 MG CAPSULE PO SCH (09:36)
--- NOTE | 2019-10-12 11:07 | DS ---
(1) Hypotension Problem: Acute Qualifiers: (2) Dyspnea on exertion Problem: Acute (3) Fatigue Problem: Acute Qualifiers: (4) Anemia Problem: Acute Qualifiers: Anemia type: folate deficiency Folate deficiency anemia type: unspecified folate deficiency Qualified Code(s): D52.9 - Folate deficiency anemia, u nspecified (5) CVA (cerebral vascular accident) Diagnosis(s): history of Problem: Chronic (6) Atrial fibrillation Diagnosis(s): s/p Pacemaker placement Problem: Chronic Qualifiers: (7) COPD (chronic obstructive pulmonary disease) Problem: Chronic Qualifiers: (8) Carotid artery stenosis Problem: Chronic Qualifiers: (9) Dementia Problem: Chronic Qualifiers: (10) Hyperlipidemia Problem: Chronic Qualifiers: (11) Hypertension Problem: Chronic Qualifiers: Date of Discharge:: 10/12/19 Hospital Course: Yumiko Zhang is an 89 year old female patient who presents to the clinic today for a 3 month recheck. The patient states that she "doesn't feel well at all but can't explain what is making her feel bad. She get shaky in her hands and her feet when she stands up. She admits to shortness of breath and dyspnea on exertion. She says her eye vision is gotten worst despite new glasses by her system sales consultant. She does see Dr. Alva, lathe winder, in [place] for macular degeneration. Due to this she is not able to know if her stools are dark or bright red blood or normal. She denies intake of any NSAIDs. She denies any nausea, vomiting, diarrhea, or constipation. Her blood work done today shows that her hemoglobin is 9.8 from 11.9 on 09/09/2019 and 13 on 08/23/2019. MCV is 109.7. Her electrolytes are within normal limits. Creatinine is 0.97 with a GFR of 58, fasting blood sugar of 116, total cholesterol of 85, LDL of 39, HDL of 33. Her liver and thyroid function tests are within normal limits. We admitted her for BT as was symtomatic. Her anemia work up showed her Iron levels were WNL, Vit B12 was normal but her folate was low. Her stool for occult blood was negaticve. They did not want any aggressive steps for her anemia like endoscopy, CTS of abdomen and pelvis. She got 1 unit of PRBC and her Hb is 11.5 and her BP now is 136/72. We referred her to PT for evaluation and she did fine. She is stable to be discharged today. Procedures Performed: none Results and Findings: Lab Pending Results 10/11/19 07:35: WBC 8.5, RBC 2.89 L, Hgb 9.8 L, Hct 31.7 L, MCV 109.7 H, MCH 33.9 H, MCHC 30.9 L, RDW 17.9 H, Plt Count 365, MPV 10.6, Immature Gran % (Auto) 3.70 H, Immature Gran # (Auto) 0.32 H, Neutrophils % 78.9 H, Lymphocytes % 8.5 L, Monocytes % 6.2, Eosinophils % 1.2, Basophils % 1.5 H, Nucleated RBC % 0.0, Neutrophils # 6.7 H, Lymphocytes # 0.73 L, Monocytes # 0.5, Eosinophils # 0.1, Absolute Basophils 0.1 10/11/19 07:35: Sodium 140, Plasma Sodium 140, Potassium 4.1, Chloride 104, Carbon Dioxide 27.3, Anion Gap 12.8, BUN 14, Creatinine 0.97, Est GFR (Non-Af Amer) 58 L, BUN/Creatinine Ratio 14.4, Random Glucose 116 H, Calcium 8.4, Calcium Adj for Albumin 8.7, Total Bilirubin 1.1, AST 15, ALT 13 L, Alkaline Phosphatase 108, Total Protein 6.1 L, Albumin 3.2 L, Triglycerides 67, Cholesterol 85, LDL Cholesterol 39 L, VLDL Cholesterol 13, HDL Cholesterol 33 L, Cholesterol/HDL Ratio 2.5 L, TSH 0.649, Free T4 1.16 10/11/19 11:54: Ferritin 243, Vitamin B12 484, Folate 8.0 L 10/11/19 11:54: Iron 41, TIBC 273, Transferrin % Sat 15 10/11/19 13:25: Blood Type A Negative, Antibody Screen Negative, Crossmatch See Detail 10/11/19 19:17: Hgb 11.5 L, Hct 36.9 L 10/12/19 04:27: Stool Occult Blood Negative Discharge Location: [facility] Disposition: Home self-care Condition: Stable Discharge Activity: Activity as tolerated Discharge Diet: Low salt Referrals: Mazin Sharma MD [Primary Care Provider] - Additional Patient Instructions (free text): Is from [facility], please fax discharge information to them. Follow up with PCP in 4 weeks. Prescriptions (Any new or edited meds): Folic Acid 1 mg PO DAILY #30 tab Transmission Status: Pending to [facility] Complete Home Medications List: Complete Home Medication List: Docusate Sodium [Colace] 100 mg PO BID PRN 01/18/18 Simethicone [Gas-X] 125 mg PO PRN 01/18/18 Wheat Dextrin [Benefiber] 152 gm PO DAILY PRN 01/18/18 Ipratropium [place] [Atrovent Hfa] 1 puff IH BID PRN 02/03/18 lorazepam 0.5 mg tablet 0.5 mg PO DAILY PRN tab 05/21/18 irbesartan 75 mg tablet 75 mg PO DAILY #90 tab 12/08/18 atorvastatin 10 mg tablet 20 mg PO HS tab 03/29/19 furosemide 20 mg tablet 10 mg PO DAILY #45 tab 05/05/19 mirtazapine 15 mg tablet 30 mg PO HS #60 tab 05/05/19 metoprolol succinate 25 mg tablet,extended release 24 hr 25 mg PO DAILY #30 tab 07/12/19 apixaban 2.5 mg tablet 2.5 mg PO BID #60 tab 07/25/19 calcium carbonate-vitamin D3 600 mg (1,500 mg)-800 unit tablet 1 tab PO DAILY #30 tab 07/25/19 fexofenadine 180 mg tablet 180 mg PO DAILY #30 tab 07/25/19 hydroxyurea 500 mg capsule 500 mg PO DAILY #30 cap 07/25/19 vit C 150 mg-vit E 30 unit-lutein 5 [id number] 3 150 mg capsule 1 cap PO QAM #30 cap 07/25/19 levothyroxine 137 mcg tablet 137 mcg PO DAILY #30 tab 08/02/19 polyethylene glycol 3350 17 gram/dose oral powder 17 g PO DAILY #255 g 08/23/19 donepezil 10 mg tablet 10 mg PO DAILY #30 tab 09/02/19 acetaminophen 650 mg tablet,extended release 650 mg PO Q6H PRN #60 tab 09/08/19 Gabapentin 100 mg PO BID 09/09/19 potassium chloride 10 mEq tablet,extended release 10 meq PO DAILY #30 tab 09/09/19 Calcium Carbonate [Tums] 500 mg PO Q6H PRN 10/11/19 Loperamide HCl [Imodium] 2 mg PO TID PRN 10/11/19 Propylene Glycol [Systane Complete] 1 drp OPHTHALMIC (EYE) QID PRN 10/11/19 Folic Acid 1 mg PO DAILY #30 tab 10/12/19
[2019-10-12 11:47] VITALS: BP 137/77
== END 2019-10-12 12:15 | disposition home or self-care (01) ==
LOC: MS 07:29 → LAB 07:29
PROVIDERS: ADMIT Internal Medicine; ATTEND Internal Medicine
DX: F03.90 Unspecified dementia, unspecified severity, without behavioral disturbance, psychotic disturbance, mood disturbance, and anxiety; I10 Essential (primary) hypertension; R06.00 Dyspnea, unspecified; I95.9 Hypotension, unspecified; R53.83 Other fatigue; D52.9 Folate deficiency anemia, unspecified; J44.9 Chronic obstructive pulmonary disease, unspecified; E78.5 Hyperlipidemia, unspecified
CPT/HCPCS: 36415; 36430; 80053; 80061; 82272; 82607; 82728; 82746; 83540; 83550; 84439; 84443; 84466; 85014; 85018; 85025; 86850; 87081; 97161; G0378; G0379; P9016